=== PATIENT | female | born 1970 | race African-American/Black ===

== ENCOUNTER 2025-03-15 15:44 | Outpatient (NON) | payer MEDICARE, SELFPAY ==
--- OUTSIDE RECORDS SUMMARY | 2025-03-15 15:47 | XMS_ITS | Clinical Summary ---
Author Organization [facility] [employer] Address [address] [place] [address] Care Team Providers Care Senior Games Technician Name Role Phone JarochoLinda castellon Primary Care Provider [phone] Source Comments [facility],non-owned Affiliates and Associated Physician Practices is amultiple site organization consisting of ambulatory clinics and hospital sitesin [place], [place], [place] and [place]. This disclosure is being madepursuant to the Care Everywhere program and may not contain all information available regarding this patient. Last updated 18.[facility] [employer] Allergies Active Allergy Reactions Criticality Noted Date Comments Prochlorperazine Seizures High 02/28/2018 Tramadol Other Medium 02/28/2018 AMS Medications * Be aware that medications may not be up to date on this document. Alwaysverify current medications with the patient. clonazePAM (KLONOPIN) 2 MG tablet Take 1 (one) tablet by mouth 2 times daily Active Cholecalcifero l 1.25 MG (25838 UT) Take 50,000 Units by mouth once daily 06/04/20 21 Active doxepin (SINEquan) 150 MG capsule Take 1 (one) capsule by mouth nightly as needed 05/13/20 22 Active Belsomra 20 MG tablet Take 1 (one) tablet by mouth at bedtime 05/29/20 24 Active rosuvastatin (Crestor) 5 MG tablet Take 1 (one) tablet by mouth once daily Active OneTouch Verio test strip PLACE 1 STRIP BY IN GLLUCOMETER ROUTE EVERY DAY 08/23/20 22 Active Microlet Lancets MISC USE TO CHECK BLOOD SUGAR ONCE A DAY 08/29/20 22 Active potassium chloride ER (Klor-Con M) 10 MEQ tablet Take 1 (one) tablet by mouth once daily Active gabapentin (Neurontin) 300 MG capsule Take 1 (one) capsule by mouth 3 times daily 07/12/20 24 Active acetaminophen (Tylenol) 160 MG/5ML solution Take 31.25 mL by mouth every 8 hours 08/22/20 24 Active furosemide (Lasix) 20 MG tablet Take 1 (one) tablet by mouth once daily Active cyclobenzaprin e (Flexeril) 10 MG tablet Take 1 (one) tablet by mouth every 8 hours as needed 15 tablet 09/06/20 24 Active senna-docusate (Senokot-S) 8.6-50 MG tablet Take 1 (one) tablet by mouth 2 times daily as needed for Constipation 10/04/20 24 Active magnesium hydroxide (Milk Of Magnesia) 400 MG/5ML suspension Take 15 mL by mouth as needed for Constipation 10/04/20 24 Active methocarbamol (Robaxin) 500 MG tablet Take 1 (one) tablet by mouth every 6 hours as needed for Muscle Spasms 60 tablet 4 11:32 AM PENS AND PENCILS DIPPER 10/06/20 24 Active naloxone HCl (Narcan) 4 MG/0.1ML nasal spray Call 911. Administer a single spray of Narcan in one nostril. Repeat every 3 minutes as needed if no or minimal response. 2 Each 10/06/20 24 Active Empagliflozin (JARDIANCE PO) Activ e oxyCODONE, immediate release, (Roxicodone) 5 MG tabletIndicati ons:Morbid obesity (HCC) Take 1 (one) tablet by mouth every 6 hours as needed for Pain 12 tablet 02/03/20 25 Active lamoTRIgine (LaMICtal) 100 MG tablet Take 1 (one) tablet by mouth once daily Active ondansetron, disintegrating , (Zofran ODT) 4 MG tablet Take 1 (one) tablet by mouth every 6 hours as needed for Nausea/Vomiting Allow tablet to dissolve on the tongue 20 tablet 02/09/20 25 Active famotidine (Pepcid) 10 MG/ML SOLN injection 2 mL by Intravenous route 2 times daily 60 mL 4 02/09/20 25 Active miSOPROStol (Cytotec) 200 MCG tabletIndicati ons:Gastric Ulcer Take 1 (one) tablet by mouth 2 times daily Reasons: Stomach Ulcer 60 tablet 2 02/09/20 25 Active senna-docusate (Senokot-S) 8.6-50 MG tablet Take 1 (one) tablet by mouth 2 times daily as needed for Constipation 02/09/20 25 Active magnesium hydroxide (Milk Of Magnesia) 400 MG/5ML suspension Take 15 mL by mouth as needed for Constipation 02/09/20 25 Active famotidine (Pepcid) 20 MG tabletIndicati ons:Gastric ulcer, unspecified chronicity, unspecified whether gastric ulcer hemorrhage or perforation present Take 1 (one) tablet by mouth 2 times daily 60 tablet 3 02/10/20 25 Active pantoprazole EC (Protonix) 40 MG tablet Take 1 (one) tablet by mouth 2 times daily 60 tablet 2 02/10/20 25 Active sucralfate (Carafate) 1 GM/10ML suspension TAKE 10 ML BY MOUTH 4 TIMES DAILY - BEFORE MEALS & NIGHTLY 3600 mL 03/14/20 25 Active sucralfate (Carafate) 1 GM/10ML suspension Take 10 mL by mouth 4 times daily - before meals & nightly 1200 mL 2 02/09/20 25 025 Discontinued Active Problems Problem Noted Date Diagnosed Date Gastric ulcer, unspecified c hronicity, unspecified whether gastric ulcer hemorrhage or perforation present 02/07/2025 Rectal bleeding 10/02/2024 Nausea and vomiting, unspecified vomiting type 1 11/14/2023 Abdominal pain, unspecified abdominal location 1 11/14/2023 Morbid obesity 08/21/2024 Chest pain 12/05/2019 Shortness of breath 04/23/2019 Acute pulmonary edema 04/23/2019 Bipolar and related disorder 04/06/2019 Overview (04/24/2019): Last Assessment & Plan: Chronic, stable. Depressive symptoms are well controlled on current medication regimen. Confounded by trauma. Denies any symptom. Denies any symptoms of marylou or hypomania s Tolerating medications without any reported side effects. The patient denies active suicidal and homicidal ideation. The following changes were made at today's appointment: Clonazepam taper and process-otherwise no change respect to medications prescribed for historical diagnosis bipolar disorder. . Reevaluate treatment/symptoms at interval per scheduled appointment. Of psychosis. Chronic post-traumatic stress disorder (PTSD) Overview (04/24/2019): Last Assessment & Plan: Chronic issue, has never had trauma focused therapy. Willing to participate in trauma focused therapy. Referred to [facility]. Consideration for use of SSRI in the future. Supportive, insight-oriented counseling provided in the office today. Continue to monitor. Closed fracture of left tibial plateau 9 Complex tear of medial menis cus of left knee as current injury 03/17/2019 Osteoarthritis of right knee 09/01/2018 Resolved Problems Problem Noted Date Diagnosed Date Resolved Date Community acquired pneumonia of right lower lobe of lung 04/23/2019 04/24/2019 Encounters Date Type Department Care Team Description 03/13/2025 Refill [facility] 2S SURG/BARIATRIC [address] [place] [id number] Shelia Little DIRECTOR OF REGULATORY AFFAIRS-PATHOLOGY LABORATORY TECHNOLOGIST Med Change Request 02/28/2025 Telephone [facility] [address] [place] [address], [address] [place] [address] Shelia Little DIRECTOR OF REGULATORY AFFAIRS-PATHOLOGY LABORATORY TECHNOLOGIST MELENA; Pain Epigastric 02/27/2025 Telephone [facility] [address] [place] [address], [facility] [address] [place] [address] Zully Zamora, RN Returned Call 02/07/2025 7:20 AM CDT - 02/07/2025 7:40 AM CDT Surgery [facility] [address] [place] [id number] Narendra Peña MD ESOPHAGOGASTRODUODENOSCOPY (EGD) DIAGNOSTIC 02/07/2025 7:18 AM CDT Anesthesia Event [facility] [address] [place] [address] Hector Reyes MD 02/07/2025 6:01 AM CDT - 02/11/2025 3:03 PM CDT Hospital Encounter [facility] SURG[facility]BARIATRIC [address] [place] [address] Narendra Peña MD Arukala, Venkat Dirish, MD Internal Medicine Discharge Disposition: Home or Self Care 02/07/2025 Travel 02/06/2025 Travel 02/02/2025 1:40 PM CDT Office Visit [facility] Health Weight Management Services [address], [address] [place] [address] Narendra Peña MD Gastric ulcer, unspecified chronicity, unspecified whether gastric ulcer hemorrhage or perforation present (Primary Dx); Morbid obesity; Other specified intestinal malabsorption; Epigastric pain 02/02/2025 Telephone [facility] [address], [address] [place] [address] Narendra Peña MD Procedure from Last 3 Months Family History * Patient is adopted Relation Name Status Comments Father Alive Mother Alive Sister Alive Social History Tobacco Use Types Packs/Day Years Used Date Smoking Tobacco: Former Cigarettes 2016 Smokeless Tobacco: Never Tobacco Cessation:Counseling Given: Yes Alcohol Use Standard Drinks/Week Comments No 0 (1 standard drink = 0.6 oz pur e alcohol) AUDIT-C Answer Date Recorded Q1: How often do you have a drink containing alcohol? Never 02/08/2025 Q2: How many drinks containi ng alcohol do you have on a typical day when you are drinking? Patient does not drink Q3: How often do you have si x or more drinks on one occasion? Never 02/08/2025 Overall Financial Resource Strain (CARDIA) Answe r Date Recorded How hard is it for you to pa y for the very basics like food, housing, medical care, and heating? Somewhat hard 02/08/2025 PHQ-2 Answer Date Recorded PHQ2 TOTAL SCORE 2 07/20/2022 [facility] - Occupational Stress Questionnaire Answer Date Recorded Do you feel stress - tense, restless, nervous, or anxious, or unable to sleep at night because your mind is troubled all the time - these days? To some extent 02/08/2025 Hunger Vital Sign Answer Date Recorded Within the past 12 months, y ou worried that your food would run out before you got the money to buy more. Sometimes true Within the past 12 months, t he food you bought just didn't last and you didn't have money to get more. Never true 01/2025 PRAPARE - Transportation Answer Date Re corded In the past 12 months, has l ack of transportation kept you from medical appointments or from getting medications? Yes 01/2025 In the past 12 months, has l ack of transportation kept you from meetings, work, or from getting things needed for daily living? No 02/08/2025 Housing Stability Vital Sign Answer Pineda e Recorded In the last 12 months, was t here a time when you were not able to pay the mortgage or rent on time? No 02/08/2025 In the past 12 months, how m any times have you moved where you were living? 1 02/08/2025 At any time in the past 12 m [facility], were you homeless or living in a chcf (including now)? No 02/08/2025 Comments No Sex and Gender Information Value Date Recorded Sex Assigned at Not on file Legal Sex Female 5:55 AM PENS AND PENCILS DIPPER Gender Identity Not on file Sexual Orientation Not on file Last Filed Vital Signs Vital Sign Reading Time Taken Comments Blood Pressure 95/66 02/11/2025 3:42 AM CDT Pulse 95 02/11/2025 3:42 AM CDT Temperature 36.8 C (98.2 F) 02/11/2025 3:42 AM CDT Respiratory Rate 17 02/11/2025 3:42 AM CDT Oxygen Saturation 97% 02/11/2025 3:42 AM CDT Inhaled Oxygen Concentration - - Weight 95.3 kg (210 lb) 02/07/2025 6:30 AM CDT Height 170.2 cm (5' 7 ) 02/07/2025 6:30 AM CDT Body Mass Index 32.89 02/07/2025 6:30 AM CDT Plan of Treatment Upcoming Encounters Date Type Department Care Team (Late st Contact Info) Description 08/21/2025 1:00 PM CDT Office Visit [facility] Health Weight Management Services [phone] [facility], [facility] [address] [place] [address] Shelia Little, DIRECTOR OF REGULATORY AFFAIRS-PATHOLOGY LABORATORY TECHNOLOGIST [address] [place] [address] Health Maintenance Due Date Last Done Comments COLOGUARD (AGES 45-75) - COLON CA SCREENING 1968 CT COLONOGRAPHY - COLON CA SCREENING 1968 FIT - COLON CA SCREENING 1968 FLEX SIG - COLON CA SCREENING 1968 PAP SMEAR 1968 HEPATITIS C SCREENING 12/12/1986 DTAP/TDAP/TD VACCINES (1 - Tdap) 1987 HEPATITIS B VACCINE (1 of 3 - 19+ 3-dose series) 1987 PNEUMOCOCCAL VACCINE 50+ (1 of 2 - PCV) 1987 ZOSTER VACCINE (1 of 2) 2018 COVID-19 VACCINE (5 - season) 2024 03/11/2022, 09/19/2021, 02/14/2021, Additional history exists DEPRESSION SCREENING 11/08/2024 09/02/2022, 08/03/2022, 08/03/2022, Additional history exists MEDICARE AWV CALENDAR YEAR 2024 INFLUENZA VACCINE (Season Ended) 2025 MAMMOGRAM 08/15/2026 08/15/2024, 06/08, 06/25/2023, Additional history exists SCREENING FOR DIABETES 02/10/2028 , 02/09/2025, 02/08/2025, Additional history exists COLON MONITORING 10/03/2034 10/03/2024, 10/03/2024 COLONOSCOPY - COLON CA SCREENING 10/03/2034 10/03/2024, 10/03/2024 Colorectal Cancer Screening 10/03/2034 HIV SCREENING Completed 12/05/2019 HIB VACCINE Aged Out No longer eligi ble based on patient's age to complete this topic HPV VACCINE Aged Out No longer eligi ble based on patient's age to complete this topic MENINGOCOCCAL (Group B) VACCINE SHARED DECISION-MAKING Aged Out No longer eligible based on patient's age to complete this topic MENINGOCOCCAL GROUPS A/C/Y/W VACCINE Aged Out No longer eligible based on patient's age to complete this topic Procedures Procedure Name Priority Date/Time Associated Diagnosis Comments SLIDE SCAN HEMATOLOGY AM Draw 02/10/2025 3:42 AM CDT PROCALCITONIN LEVEL AM Draw 02/10/2025 3 :42 AM CDT CBC W AUTO DIFFERENTIAL AM Draw 02/10/2025 3:42 AM CDT SARS-COV-2 (COVID-19) FLU A/B RSV PCR RAPID Routine 02/09/2025 11:31 AM CDT CULTURE BLOOD Timed 02/09/2025 11:25 AM CDT CULTURE BLOOD Timed 02/09/2025 11:19 AM CDT XR CHEST 1VW PORTABLE STAT 02/09/2025 8:25 AM CDT Abdominal pain, unspecified abdominal location COPPER BLOOD AM Draw 02/09/2025 3:53 AM CDT Other specified intestinal malabsorption (HCC) Abdominal pain, unspecified abdominal location Bariatric surgery status ZINC BLOOD AM Draw 02/09/2025 3:53 AM CDT Other specified intestinal malabsorption (HCC) Abdominal pain, unspecified abdominal location Bariatric surgery status BASIC METABOLIC PANEL (CALCIUM TOTAL) AM Draw 02/09/2025 3:53 AM CDT Other specified intestinal malabsorption (HCC) Abdominal pain, unspecified abdominal location Bariatric surgery status CBC W/O DIFFERENTIAL AM Draw 02/09/2025 3:53 AM CDT Other specified intestinal malabsorption (HCC) Abdominal pain, unspecified abdominal location Bariatric surgery status PREALBUMIN Routine 02/09/2025 3:53 AM CDT Other specified intestinal malabsorption (HCC) Abdominal pain, unspecified abdominal location Bariatric surgery status PTH INTACT W/O CALCIUM AM Draw 02/09/2025 3:53 AM CDT Other specified intestinal malabsorption (HCC) Abdominal pain, unspecified abdominal location Bariatric surgery status MAGNESIUM BLOOD Routine 02/09/2025 3:53 AM CDT Other specified intestinal malabsorption (HCC) Abdominal pain, unspecified abdominal location Bariatric surgery status VITAMIN B1 AM Draw 02/09/2025 3:53 AM CDT Other specified intestinal malabsorption (HCC) Abdominal pain, unspecified abdominal location Bariatric surgery status VITAMIN K1 AM Draw 02/09/2025 3:53 AM CDT Other specified intestinal malabsorption (HCC) Abdominal pain, unspecified abdominal location Bariatric surgery status VITAMIN E AM Draw 02/09/2025 3:53 AM CDT Other specified intestinal malabsorption (HCC) Abdominal pain, unspecified abdominal location Bariatric surgery status VITAMIN A AM Draw 02/09/2025 3:53 AM CDT Other specified intestinal malabsorption (HCC) Abdominal pain, unspecified abdominal location Bariatric surgery status GLUCOSE - POINT OF CARE Routine 02/09/2025 2:16 AM CDT FOLATE STAT 02/08/2025 3:44 AM CDT Bariatric surgery status VITAMIN B12 STAT 02/08/2025 3:44 AM CDT Bariatric surgery status FERRITIN STAT 02/08/2025 3:44 AM CDT Gastric ulcer, unspecified chronicity, unspecified whether gastric ulcer hemorrhage or perforation present IRON + TRANSFERRIN PANEL STAT 02/08/2025 3:44 AM CDT Gastric ulcer, unspecified chronicity, unspecified whether gastric ulcer hemorrhage or perforation present SLIDE SCAN HEMATOLOGY AM Draw 02/08/2025 3:44 AM CDT Gastric ulcer, unspecified chronicity, unspecified whether gastric ulcer hemorrhage or perforation present BASIC METABOLIC PANEL (CALCIUM TOTAL) Routine 02/08/2025 3:44 AM CDT CBC W AUTO DIFFERENTIAL AM Draw 02/08/2025 3:44 AM CDT Gastric ulcer, unspecified chronicity, unspecified whether gastric ulcer hemorrhage or perforation present AK ED EGD FLEX TRANSORAL DX 02/07/2025 7:20 AM CDT EGD Routine 02/07/2025 6:55 AM CDT Morbid obesity (HCC) Other specified intestinal malabsorption (HCC) Gastric ulcer, unspecified chronicity, unspecified whether gastric ulcer hemorrhage or perforation present ENDOSCOPY, COLON, DIAGNOSTIC Routine 10/03/2024 10:39 AM PENS AND PENCILS DIPPER HIV-1 HIV-2 ANTIBODY + HIV P24 AG PANEL STAT 12/05/2019 8:51 AM PENS AND PENCILS DIPPER from Last 3 Months or Most Recently Relevant to Health Maintenance Results * (ABNORMAL) PROCALCITONIN LEVEL (02/10/2025 3:42 AM CDT) Procalcitonin 1.47(H) <0.10 ng/mL 02/10/2025 4:32 AM CDT [facility] Blood BLOOD SPECIMEN / Unknown Venipuncture / Unknown 02/10/2025 3:42 AM CDT 02/10/2025 3:54 AM CDT Narrative [facility] - 02/10/2025 4:32 AM CDT The change in procalcitonin (PCT) concentration over time provides support in decision making on antibiotic discontinuation for suspected or confirmed septic patients. Follow-up samples should be tested once every 1-2 days based upon physician discretion taking into account the patient s evolution and progress. Consider discontinuation of antibiotic therapy if the PCT current is <= 0.5 ng/mL or if the delta PCT is > 80%. Duration of antibiotics should not be determined solely on PCT; established guidelines for the indication should be followed. PCT peak: Highest observed PCT concentration PCT current: Most recent PCT concentration Calculate delta PCT using the following equation: Delta PCT = PCT Peak PCT current X 100% PCT Peak The Change in Procalcitonin Calculator is available at [email or web address] If clinical picture has not improved and PCT remains high, reevaluate and consider treatment failure or other causes. Janak Zuniga MD LAB - CHEMISTRY ORDERAB LES Final Result Performing Organization Address [facility] Co de Phone Number [facility] [address] [place], [place] [id number] * (ABNORMAL) SLIDE SCAN HEMATOLOGY (02/10/2025 3:42 AM CDT) Only the most recent of2 resultswithin the time period is included. Pathologist [facility] RBC Morphology REVIEWED 02/10/2025 4:33 AM CDT [facility] Schistocytes FEW(A) (none) 02/10/2025 4:33 AM CDT [facility] Blood BLOOD SPECIMEN / Unknown Venipuncture / Unknown 02/10/2025 3:42 AM CDT 02/10/2025 3:54 AM CDT Janak Zuniga MD LAB - HEMATOLOGY ORDERA BLES Final Result Performing Organization Address [facility] de Phone Number [facility] [address] [place] [address] * (ABNORMAL) CBC W AUTO DIFFERENTIAL (02/10/2025 3:42 AM CDT) Only the most recent of2 resultswithin the time period is included. Pathologist [facility] WBC 7.0 4.0 - 10.7 x10E9/L 02/10/2025 4:33 AM CDT [facility] RBC Count 5.25(H) 3.90 - 5.20 x10E12/L 02/10/2025 4:33 AM CDT [facility] Hemoglobin 10.2(L) 11.9 - 15.8 g/dL 02/10/2025 4:33 AM CDT [facility] Hematocrit 34.4(L) 34.8 - 46.1 % 02/10/2025 4:33 AM CDT [facility] MCV 65.5(L) 80.0 - 98.0 fL 02/10/2025 4:33 AM CDT [facility] MCH 19.4(L) 26.7 - 33.6 pg 02/10/2025 4:33 AM CDT [facility] MCHC 29.7(L) 31.7 - 36.3 g/dL 02/10/2025 4:33 AM CDT [facility] RDW-CV 22.9(H) 11.3 - 14.8 % 02/10/2025 4:33 AM CDT [facility] Platelet Count 468(H) 150 - 420 x10E9/L 02/10/2025 4:33 AM CDT [facility] MPV 8.5 7.8 - 11.4 fL 02/10/2025 4:33 AM CDT [facility] Neutrophil % 50.7 41.0 - 74.0 % 02/10/2025 4:33 AM CDT [facility] Lymphocyte % 34.3 17.0 - 47.0 % 02/10/2025 4:33 AM CDT [facility] Monocyte % 8.1 3.0 - 11.0 % 02/10/2025 4:33 AM CDT [facility] Eosinophil % 5.3 0.0 - 7.0 % 02/10/2025 4:33 AM T [facility] Basophil % 0.3 0.0 - 1.6 % 02/10/2025 4:33 AM T [facility] Immature Granulocytes % 1.3(H) 0.0 - 1.0 % 02/10/2025 4:33 AM CDT [facility] Neutrophil Absolute 3.56 1.60 - 7.50 x10E9/L 02/10/2025 4:33 AM T [facility] Lymphocyte Absolute 2.41 1.00 - 4.40 x10E9/L 02/10/2025 4:33 AM T [facility] Monocyte Absolute 0.57 0.15 - 1.00 x10E9/L 02/10/2025 4:33 AM CDT [facility] Eosinophil Absolute 0.37 0.00 - 0.60 x10E9/L 02/10/2025 4:33 AM T [facility] Basophil Absolute 0.02 0.00 - 0.13 x10E9/L 02/10/2025 4:33 AM CDT [facility] NRBC 0.9(H) <=0.0 /100 WBC 02/10/2025 4:33 AM T [facility] Blood BLOOD SPECIMEN / Unknown Venipuncture / Unknown 02/10/2025 3:42 AM CDT 02/10/2025 3:54 AM CDT Janak Zuniga MD LAB - HEMATOLOGY ORDERA BLES Final Result Performing Organization Address [facility] Co de Phone Number [facility] [address] [place] [phone] * SARS-COV-2 (COVID-19) FLU A/B RSV PCR RAPID (02/09/2025 11:31 AM CDT) [facility] COVID-19 PCR Not detected Not detected 02/10/20 12:24 PM CDT [facility] Influenza A PCR Not detected Not detected 02/09/2025 12:24 PM CDT [facility] Influenza B PCR Not detected Not detected 02/09/2025 12:24 PM CDT [facility] RSV PCR Not detected Not detected 02/09/2025 12:24 PM CDT [facility] Microbiology SPECIMEN FROM NASOPHARYNGEAL STRUCTURE / Unknown Collection / Unknown 02/09/2025 11:31 AM CDT 02/09/2025 11:41 AM CDT Narrative [facility] - 02/09/2025 12:24 PM CDT This nucleic acid amplification assay has been authorized by the Food and Drug administration (FDA) under an Emergency Use Authorization (EUA). This test is only authorized for the duration of time the declaration that circumstances exist justifying the authorization of emergency use of in vitro diagnostic tests for detection of SARS-CoV-2 virus and/or diagnosis of COVID-19 infection under section 564(b)(1) of the Act, 21 U.S.C 360bbb-3 (b)(1), unless the authorization is terminated or revoked sooner. Fact Sheets for this EUA assay are available upon request. Janak Zuniga MD LAB - MICROBIOLOGY ORDEleazar BURRIS Final Result Performing Organization Address [facility] Co de Phone Number [facility] [address] [place] [phone] * CULTURE BLOOD (02/09/2025 11:25 AM CDT) Only the most recent of2 resultswithin the time period is included. Culture No growth day 5 NATI 02/14/2025 2:01 PM CDT [facility]CRO[facility] Blood PERIPHERAL BLOOD / Unknown Venipuncture / Unknown 02/09/2025 11:25 AM CDT 02/09/2025 11:41 AM CDT Janak Zuniga MD LAB - MICROBIOLOGY DEMETRIUS BURRIS Final Result [facility]CRO[facility] [address] [place] [address], [facility] [phone] * XR Chest 1Vw Portable (02/09/2025 8:25 AM CDT) Anatomical Region Laterality Modality Chest Computed Radiogr aphy 02/09/2025 8:43 AM CDT Impressions 02/09/2025 8:44 AM CDT Impression: Left basilar atelectasis, rotated examination, otherwise no active disease. > Interpreting Provider: Hemanth Fenton MD on 02/09/2025 8:44 AM Narrative 02/09/2025 8:44 AM CDT PROCEDURE: XR CHEST 1VW PORTABLE, DATE/TIME OF EXAM: 02/09/2025 8:25 AM, LOCATION [facility] INDICATION: R10.9: Unspecified abdominal pain ADDITIONAL CLINICAL INFORMATION: Ordering Provider Reason For Exam: Technologist Note: Additional: Abdominal pain COMPARISON: December 05, 2019 Findings: Nonstandard portable exam. Heart size is normal. Left base subsegmental atelectasis. No paraspinal soft tissue swelling. No pneumothorax. No paraspinal soft tissue swelling. No aggressive appearing bone destructive process. No upper abdominal bowel loop distention. Procedure Note Hemanth Fenton MD - 02/09/2025 PROCEDURE: XR CHEST 1VW PORTABLE, DATE/TIME OF EXAM: 02/09/2025 8:25 AM, LOCATION [facility] INDICATION: R10.9: Unspecified abdominal pain ADDITIONAL CLINICAL INFORMATION: Ordering Provider Reason For Exam: Technologist Note: Additional: Abdominal pain COMPARISON: December 05, 2019 Findings: Nonstandard portable exam. Heart size is normal. Left base subsegmental atelectasis. No paraspinal soft tissue swelling. No pneumothorax. No paraspinal soft tissueswelling. No aggressive appearing bone destructive process. No upper abdominalbowel loop distention. Impression: Left basilar atelectasis, rotated examination, otherwise no active disease. > Interpreting Provider: Hemanth Fenton MD on 02/09/2025 8:44 AM Janak Zuniga MD DIAGNOSTIC IMAGING DEMETRIUS BURRIS Final Result * (ABNORMAL) PTH INTACT W/O CALCIUM (02/09/2025 3:53 AM CDT) Pathologist [facility] PTH Intact 118.9(H) 8.7 - 77.1 pg/mL 02/09/2025 4:47 AM CDT [facility] Blood BLOOD SPECIMEN / Unknown Venipuncture / Unknown 02/09/2025 3:53 AM CDT 02/09/2025 4:05 AM CDT Shelia Melisa Little DIRECTOR OF REGULATORY AFFAIRS-PATHOLOGY LABORATORY TECHNOLOGIST LAB - CHEMISTRY O RDERABLES Final Result [facility] [address] [id number] * (ABNORMAL) VITAMIN K1 (02/09/2025 3:53 AM CDT) Vitamin K1 <0.10(L) 0.10 - 2.20 ng/mL 02/18/2025 10:06 PM CDT [facility] Blood BLOOD SPECIMEN / Unknown Venipuncture / Unknown 02/09/2025 3:53 AM CDT 02/09/2025 4:05 AM CDT Narrative [facility] ([facility]) - 02/18/2025 10:06 PM CDT Test(s) 540915-Stwemoe K1 was developed and its performance characteristics determined by [facility]. It has not been cleared or approved by the Food and Drug Administration. Performed at: 01 - [address] [id number] Manager Ccu: Neetu Agrawal MD, Phone: [phone] Shelia Little [facility] LAB - CHEMISTRY O RDERABLES Final Result Performing Organization Address [facility] de Phone Number [facility] ([facility]) [address] [place] [address] * (ABNORMAL) ZINC BLOOD (02/09/2025 3:53 AM CDT) Zinc, Plasma or Serum 40(L) 44 - 115 ug/dL 02/15/2025 5:09 PM CDT [facility] ([facility]) Comment:Detection Limit = 5 Blood BLOOD SPECIMEN / Unknown Venipuncture / Unknown 02/09/2025 3:53 AM CDT 02/09/2025 4:05 AM CDT Narrative [facility] ([facility]) - 02/15/2025 5:09 PM CDT Test(s) 625415-Mfcf, Plasma or Serum was developed and its performance characteristics determined by [facility]. It has not been cleared or approved by the Food and Drug Administration. Performed at: - [address] [id number] Manager Ccu: Neetu Agrawal MD, Phone: [phone] us Shelia Little [facility] LAB - CHEMISTRY O RDERABLES Final Result Performing Organization Address [facility] de Phone Number [facility] ([facility]) [address] [place] [address] * (ABNORMAL) VITAMIN A (02/09/2025 3:53 AM CDT) Vitamin A 7.7(L) 20.1 - 62.0 ug/dL 02/19/2025 4:11 PM CDT [facility] ([facility]) Comment: Reference intervals for vitamin A determined from [facility] internal studies. Individuals with vitamin A less than 20 ug/dL are considered vitamin A deficient and those with serum concentrations less than 10 ug/dL are considered severely deficient. This test was developed and its performance characteristics determined by [facility]. It has not been cleared or approved by the Food and Drug Administration. Blood BLOOD SPECIMEN / Unknown Venipuncture / Unknown 02/09/2025 3:53 AM CDT 02/09/2025 4:05 AM CDT Narrative [facility] ([facility]) - 02/19/2025 4:11 PM CDT Performed at: - [facility] [id number] Manager Ccu: Neetu Agrawal MD, Phone: [phone] us Shelia Vincent Anabel DIRECTOR OF REGULATORY AFFAIRS-PATHOLOGY LABORATORY TECHNOLOGIST LAB - CHEMISTRY O RDERABLES Final Result [facility] ([facility]) [address] [place] [address] * (ABNORMAL) VITAMIN E (02/09/2025 3:53 AM CDT) Vitamin E Alpha Tocopherol 5.1(L) 7.0 - 25.1 mg/L 02/19/2025 4:11 PM CDT [facility] ([facility]) Vitamin E Gamma Tocopherol 1.7 0.5 - 5.5 mg/L 02/19/2025 4:11 PM CDT [facility] ([facility]) Comment: Reference intervals for alpha and gamma-tocopherol determined from National Health and Nutrition Examination Survey, 4258-7956. Individuals with alpha-tocopherol levels less than 5.0 mg/L are considered vitamin E deficient. Blood BLOOD SPECIMEN / Unknown Venipuncture / Unknown 02/09/2025 3:53 AM CDT 02/09/2025 4:05 AM CDT Narrative [facility] ([facility]) - 02/19/2025 4:11 PM CDT Test(s) 251860-Gtditvm E(Alpha Tocopherol); 349008- Vitamin E(Gamma Tocopherol) was developed and its performance characteristics determined by [facility] [employer]. It has not been cleared or approved by the Food and Drug Administration. Performed at: [address] [id number] Manager Ccu: Neetu Agrawal MD, Phone: [phone] Shelia Cosmeeleazar Little DIRECTOR OF REGULATORY AFFAIRS-[facility] LAB - CHEMISTRY O RDERABLES Final Result Performing Organization Address City/[facility]/ZIP Co de Phone Number [facility]) [address] [place] [address] * VITAMIN B1 (02/09/2025 3:53 AM CDT) Vitamin B1 Whole Blood 83.0 66.5 - 200.0 nmol/L 02/14/2025 2:10 PM CDT [facility] ([facility]) Blood BLOOD SPECIMEN / Unknown Venipuncture / Unknown 02/09/2025 3:53 AM CDT 02/09/2025 4:05 AM CDT Narrative [facility] ([facility]) - 02/14/2025 2:10 PM CDT Test(s) 238345-Wdp. B1, Whole Blood was developed and its performance characteristics determined by [facility]. It has not been cleared or approved by the Food and Drug Administration. Performed at: - [address] [id number] Manager Ccu: Neetu Agrawal MD, Phone: [phone] Shelia Melisa Little DIRECTOR OF REGULATORY AFFAIRS-[facility] LAB - CHEMISTRY O RDERABLES Final Result Performing Organization Address [facility] Co de Phone Number [facility]) [address] [place] [address] * (ABNORMAL) COPPER BLOOD (02/09/2025 3:53 AM CDT) Pathologist [facility] Copper 60(L) 80 - 158 ug/dL 02/15/2025 5:09 PM CDT [facility] ([facility]) Comment:Detection Limit = 5 Blood BLOOD SPECIMEN / Unknown Venipuncture / Unknown 02/09/2025 3:53 AM CDT 02/09/2025 4:05 AM CDT Narrative [facility] ([facility]) - 02/15/2025 5:09 PM CDT Test(s) 125637-Imvfjz, Serum or Plasma was developed and its performance characteristics determined by [facility]. It has not been cleared or approved by the Food and Drug Administration. Performed at: 01 - [place] [id number] [place], [place] [id number] Manager Ccu: Neetu Agrawal MD, Phone: [phone] Janak Zuniga MD LAB - CHEMISTRY ORDERAB LES Final Result [facility] ([facility]) [address] [place] [address] * (ABNORMAL) CBC W/O DIFFERENTIAL (02/09/2025 3:53 AM CDT) WBC 8.0 4.0 - 10.7 x10E9/L 02/09/2025 4:19 AM CDT [facility] RBC Count 4.76 3.90 - 5.20 x10E12/L 02/09/2025 4:19 AM CDT [facility] Hemoglobin 9.3(L) 11.9 - 15.8 g/dL 02/09/2025 4:19 AM CDT [facility] Hematocrit 31.0(L) 34.8 - 46.1 % 02/09/2025 4:19 AM CDT [facility] MCV 65.1(L) 80.0 - 98.0 fL 02/09/2025 4:19 AM CDT [facility] MCH 19.5(L) 26.7 - 33.6 pg 02/09/2025 4:19 AM CDT [facility] MCHC 30.0(L) 31.7 - 36.3 g/dL 02/09/2025 4:19 AM CDT [facility] RDW-CV 22.5(H) 11.3 - 14.8 % 02/09/2025 4:19 AM CDT [facility] Platelet Count 429(H) 150 - 420 x10E9/L 02/09/2025 4:19 AM CDT [facility] MPV 8.5 7.8 - 11.4 fL 02/09/2025 4:19 AM CDT [facility] NRBC 0.4(H) <=0.0 /100 WBC 02/09/2025 4:19 AM CDT [facility] Blood BLOOD SPECIMEN / Unknown Venipuncture / Unknown 02/09/2025 3:53 AM CDT 02/09/2025 4:05 AM CDT Shelia Little [facility] LAB - HEMATOLOGY ORDERABLES Final Result [facility] [address] [place] [address] * (ABNORMAL) BASIC METABOLIC PANEL (CALCIUM TOTAL) (02/09/2025 3:53 AM CDT) Only the most recent of2 resultswithin the time period is included. [facility] Glucose 82 70 - 99 mg/dL 02/09/2025 4:39 AM CDT [facility] Sodium 142 136 - 145 mmol/L 02/09/2025 4:39 AM CDT [facility] Potassium 3.7 3.5 - 5.1 mmol/L 02/09/2025 4:39 AM CDT [facility] Chloride 112(H) 98 - 107 mmol/L 02/09/2025 4:39 AM CDT [facility] CO2 23 22 - 29 mmol/L 02/09/2025 4:39 AM CDT [facility] Calcium 7.9(L) 8.4 - 10.4 mg/dL 02/09/2025 4:39 AM T [facility] Anion Gap 7 6 - 16 mmol/L 02/09/2025 4:39 AM CDT [facility] BUN 4(L) 7 - 26 mg/dL 02/09/2025 4:39 AM CDT [facility] Creatinine 0.68 0.57 - 1.11 mg/dL 02/09/2025 4:39 AM T [facility] eGFR by CKD-EPI >90 >=90 mL/min/1.7 3 m2 02/09/2025 4:39 AM T [facility] Blood BLOOD SPECIMEN / Unknown Venipuncture / Unknown 02/09/2025 3:53 AM CDT 02/09/2025 4:05 AM CDT [facility] - CHEMISTRY O RDERABLES Final Result Performing Organization Address [facility] Co de Phone Number [facility] [address] [place], [place] [phone] * (ABNORMAL) PREALBUMIN (02/09/2025 3:53 AM CDT) [facility] Prealbumin 9.0(L) 16.0 - 38.0 mg/dL 02/09/2025 10:37 AM CDT [facility] Blood BLOOD SPECIMEN / Unknown Venipuncture / Unknown 02/09/2025 3:53 AM CDT 02/09/2025 4:05 AM CDT Shelia Little [facility] LAB - CHEMISTRY O RDERABLES Final Result Performing Organization Address [facility] Co de Phone Number [facility] [address] [place] [address] * MAGNESIUM BLOOD (02/09/2025 3:53 AM CDT) [facility] Magnesium 1.6 1.6 - 2.6 mg/dL 02/09/2025 4:39 AM CDT [facility] Blood BLOOD SPECIMEN / Unknown Venipuncture / Unknown 02/09/2025 3:53 AM CDT 02/09/2025 4:05 AM CDT Shelia Little [facility] LAB - CHEMISTRY O RDERABLES Final Result Performing Organization Address [facility]/ZIP Co de Phone Number [facility] [address] [place] [address] * GLUCOSE - POINT OF CARE (02/09/2025 2:16 AM CDT) [facility] Glucose WB/POC 91 70 - 99 mg/dL 02/09/2025 2:18 AM CDT [facility] Specimen Type Cap Fingerstick 2024 2:18 AM CDT [facility] Blood BLOOD SPECIMEN / Unknown 02/09/2025 2:16 AM CDT 02/09/2025 2:18 AM CDT Janak Zuniga MD LAB - POINT OF CARE ORD ERABLES Final Result Performing Organization Address [facility] Co de Phone Number [facility] [address] [place] [address] * FOLATE (02/08/2025 3:44 AM CDT) Folate 9.4 7.0 - 31.4 ng/mL 02/08/2025 10:40 AM CDT [facility] Blood BLOOD SPECIMEN / Unknown Venipuncture / Unknown 02/08/2025 3:44 AM CDT 02/08/2025 3:53 AM CDT Janak Zuniga MD LAB - CHEMISTRY ORDERAB LES Final Result Performing Organization Address [facility] de Phone Number [facility] [address] [place] [address] * VITAMIN B12 (02/08/2025 3:44 AM CDT) Pathologist [facility] Vitamin B12 444 213 - 816 pg/mL 02/08/2025 10:40 AM CDT [facility] Blood BLOOD SPECIMEN / Unknown Venipuncture / Unknown 02/08/2025 3:44 AM CDT 02/08/2025 3:53 AM CDT Janak Zuniga MD LAB - CHEMISTRY ORDERAB LES Final Result Performing Organization Address [facility] de Phone Number [facility] [address] [place] [address] * (ABNORMAL) IRON + TRANSFERRIN PANEL (02/08/2025 3:44 AM CDT) Iron 21(L) 40 - 150 ug/dL 02/08/2025 8:25 AM CDT [facility] Transferrin 227 174 - 382 mg/dL 02/08/2025 8:25 AM CDT [facility] TIBC Calculated 284 240 - 450 ug/dL 02/08/2025 8:25 AM CDT [facility] Iron Saturation % 7(L) 20 - 50 % 02/08/2025 8:25 AM CDT [facility] Blood BLOOD SPECIMEN / Unknown Venipuncture / Unknown 02/08/2025 3:44 AM CDT 02/08/2025 3:53 AM CDT Janak Zuniga MD LAB - CHEMISTRY ORDERAB LES Final Result Performing Organization Address City/[facility] Co de Phone Number [facility] [address] [place] [address] * FERRITIN (02/08/2025 3:44 AM CDT) Ferritin 34 5 - 204 ng/mL 02/08/2025 8:38 AM CDT [facility] Blood BLOOD SPECIMEN / Unknown Venipuncture / Unknown 02/08/2025 3:44 AM CDT 02/08/2025 3:53 AM CDT Janak Zuniga MD LAB - CHEMISTRY ORDERAB LES Final Result Performing Organization Address [facility] de Phone Number [facility] [address] [place] [address] * EGD (02/07/2025 6:55 AM CDT) Report Endoscopy POC _ Patient Name: Liudmila Hickman Procedure Date: 02/07/2025 6:55 AM Date of : 1970 Admit Type: Outpatient Age: 54 Gender: Female Attending MD: Narendra Peña MD, _ Procedure: Upper GI endoscopy Indications: Epigastric abdominal pain Providers: Narendra Peña MD (Doctor) Referring MD: Linda Avendaño DO (Referring MD) Medicines: Monitored Anesthesia Care Complications: No immediate complications. _ Estimated Blood Loss: Estimated blood loss: none. Procedure: Pre-Anesthesia Assessment: - Prior to the procedure, a History and Physical was performed, and patient medications and allergies were reviewed. The patient's tolerance of previous anesthesia was also reviewed. The risks and benefits of the procedure and the sedation options and risks were discussed with the patient. All questions were answered, and informed consent was obtained. Prior Anticoagulants: The patient has taken no anticoagulant or antiplatelet agents. ASA Grade Assessment: III - A patient with severe systemic disease. After reviewing the risks and benefits, the patient was deemed in satisfactory condition to undergo the procedure. After obtaining informed consent, the endoscope was passed under direct vision. Throughout the procedure, the patient's blood pressure, pulse, and oxygen saturations were monitored continuously. The Endoscope was introduced through the mouth, and advanced to the proximal jejunum. The upper GI endoscopy was accomplished without difficulty. The patient tolerated the procedure well. Findings: The lower third of the esophagus was normal. Estimated blood loss: none. The Z-line was regular and was found 35 cm from the incisors. Estimated blood loss: none. Evidence of a gastric bypass was found. A gastric pouch with a 5 cm length from the GE junction to the gastrojejunal anastomosis was found. The staple line appeared intact. The gastrojejunal anastomosis was characterized by edema, erythema, inflammation and ulceration. This was traversed. The examined jejunum was normal. _ Impression: - Normal lower third of esophagus. - Z-line regular, 35 cm from the incisors. - Gastric bypass with a pouch 5 cm in length and intact staple line. Gastrojejunal anastomosis characterized by edema, erythema, inflammation and ulceration. - Normal examined jejunum. - No specimens collected. Recommendation: - Discharge patient to home. - Resume previous diet. - Continue present medications. Procedure Code(s): --- Professional --- 40595, Esophagogastroduo denoscopy, flexible, transoral; diagnostic, including collection of specimen(s) by brushing or washing, when performed (separate procedure) --- Technical --- 97774, Esophagogastroduo denoscopy, flexible, transoral; diagnostic, including collection of specimen(s) by brushing or washing, when performed (separate procedure) Diagnosis Code(s): --- Professional --- Z98.84, Bariatric surgery status K28.9, Gastrojejunal ulcer, unspecified as acute or chronic, without hemorrhage or perforation R10.13, Epigastric pain --- Technical --- Z98.84, Bariatric surgery status K28.9, Gastrojejunal ulcer, unspecified as acute or chronic, without hemorrhage or perforation R10.13, Epigastric pain CPT copyright 2020 [employer]. All rights reserved. The codes documented in this report are preliminary and upon vp of technology review may be revised to meet current compliance requirements. Narendra Peña ___ Narendra Peña MD 02/07/2025 7:32:44 AM This report has been signed electronically. Number of Addenda: 0 Note Initiated On: 02/07/2025 6:55 AM [facility] 02/07/2025 6:55 AM CDT Narrative Procedure Note Narendra Peña MD - 02/07/2025 7:33 AM CDT EGD completed. Gastric bypass with marginal ulcer. A full PDF copy of the report with photos is in the results and/or mediatab for your review. Please refer to this for full details of theprocedure. Carafate PPI gtt Pepcid Cytotec Admit for further management and pain control Narendra Peña MD us Narendra Peña MD GI PROCEDURE ORDERABLES Edit ed Result - Final [facility] [place] [address] * ENDOSCOPY, COLON, DIAGNOSTIC (10/03/2024 10:39 AM [employer]IP[employer]) Report Endoscopy POC _ Patient Name: Liudmila Hickman Procedure Date: 10/03/2024 10:39 AM Date of : 1970 Admit Type: Inpatient Age: 53 Gender: Female Attending MD: Miko Dale MD, _ Procedure: Colonoscopy Indications: Melena Providers: Miko Dale MD (Doctor) Referring MD: Luis Esquivel DO (Referring MD) Medicines: Monitored Anesthesia Care Complications: No immediate complications. _ Estimated Blood Loss: Estimated blood loss: none. Procedure: After I obtained informed consent, the scope was passed under direct vision. Throughout the procedure, the patient's blood pressure, pulse, and oxygen saturations were monitored continuously. The Colonoscope was introduced through the anus and advanced to the cecum, identified by appendiceal orifice and ileocecal valve. The colonoscopy was performed without difficulty. The patient tolerated the procedure well. The quality of the bowel preparation was poor. The ileocecal valve, appendiceal orifice, and rectum were photographed. Findings: A small amount of stool was found in the entire colon, interfering with visualization. The exam was otherwise without abnormality. _ Impression: - Preparation of the colon was poor. - Stool in the entire examined colon. no source of bleeding seen. Small polyps could have been missed - The examination was otherwise normal. - No specimens collected. Recommendation: - Repeat colonoscopy in 3 years because the bowel preparation was poor. bleeding most likely from upper GI source from gastrojejunal anastomosis Procedure Code(s): --- Professional --- 92932, Colonoscopy, flexible; diagnostic, including collection of specimen(s) by brushing or washing, when performed (separate procedure) --- Technical --- 36608, Colonoscopy, flexible; diagnostic, including collection of specimen(s) by brushing or washing, when performed (separate procedure) Diagnosis Code(s): --- Professional --- K92.1, Melena (includes Hematochezia) --- Technical --- K92.1, Melena (includes Hematochezia) CPT copyright 2020 [employer]. All rights reserved. The codes documented in this report are preliminary and upon vp of technology review may be revised to meet current compliance requirements. Dr. Miko Dale MD Miko Dlae MD 10/03/2024 12:47:52 PM This report has been signed electronically. Number of Addenda: 0 Note Initiated On: 10/03/2024 10:39 AM [facility] 10/03/2024 10:3 9 AM [employer]ILS [employer]IP[employer] us Miko Dale MD GI PROCEDURE ORDERABLES Edited R esult - Final Performing Organization Address City/[facility]/ZIP Co de Phone Number [facility] [place] [address] * HIV-1 HIV-2 ANTIBODY + HIV P24 AG PANEL (12/05/2019 8:51 AM [employer]) HIV1/2 Ab + P24 Ag Non Reactive Non Reactive 12/05/2019 9:33 AM [employer] Blood BLOOD SPECIMEN / Unknown Venipuncture / Unknown 12/05/2019 8:51 AM [employer] 12/05/2019 8:55 AM [facility]ILS [employer] Narrative [facility] - 12/05/2019 9:33 AM [employer] No Laboratory evidence of HIV infection. us Sahil Lomax MD LAB - CHEMISTRY ORDERABLES Final Result Performing Organization Address [facility] Co de Phone Number [facility] [address] [place] [address] from Last 3 Months or Most Recently Relevant to Health Maintenance Insurance [facility] MANAGED MEDICARE ADV [employer] Advance Directives * Full Code (Latest Code Status on File) Date Activated Date Inactivated Comments 02/07/2025 10:20 AM 02/11/2025 4:03 PM * Full Code Date Activated Date Inactivated Comments 02/07/2025 8:47 AM 02/07/2025 10:20 AM * Full Code Date Activated Date Inactivated Comments 10/02/2024 7:06 PM 10/06/2024 7:23 PM * Full Code Date Activated Date Inactivated Comments 09/14/2024 9:17 PM 09/18/2024 5:41 PM * Full Code Date Activated Date Inactivated Comments 08/21/2024 3:21 PM 08/23/2024 4:18 PM Care Teams Senior Games Technician Relationship Specialty Start Date End Date Linda Avendaño DO [address] [place] [address] [phone] PCP - General Internal Medicine 07/09/22
--- OUTSIDE RECORDS SUMMARY | 2025-03-15 15:47 | XMS_ITS | Referral Summary ---
Author Organization [facility] [address] [place] [id number] Care Team Providers Care Field Sales Trainer Name Role Phone Rosmery Christiansen PT Unavailable Unavail able Jordyn Mathews PT Unavailable U Maria Teresa Lopez PT Unavailable Unavailable Linda Avendaño DO Primary Care Provider [phone] Allergies Active Allergy Reactions Criticality Noted Date Comments Prochlorperazine Seizures High 02/28/2018 Tramadol Hallucinations Medium 02/28/2018 Medications clonazePAM (KlonoPIN) 2 mg tablet Take 1 tablet (2 mg total) by mouth nightly 1 Active potassium chloride ER (KLOR-CON) 10 mEq CR tablet Take 1 capsule by mouth daily 1 Active doxepin (SINEquan) 150 mg capsule Take 1 capsule (150 mg total) by mouth nightly 30 capsule 11 1 Active lurasidone (LATUDA) 120 mg tablet Take 1 tablet (120 mg total) by mouth daily before dinner Active Microlet Lancet misc USE TO CHECK BLOOD SUGAR ONCE A DAY 2 Active gabapentin (NEURONTIN) 300 mg capsule Take 1 capsule (300 mg total) by mouth 3 (three) times a day 4 Active rosuvastatin (CRESTOR) 5 mg tablet Take 1 tablet (5 mg total) by mouth daily Active albuterol HFA (PROVENTIL HFA,VENTOLIN HFA,PROAIR HFA) 90 mcg/actuation inhaler Inhale 2 puffs every 4 (four) hours as needed for wheezing or shortness of breath Active enoxaparin (LOVENOX) 40 mg/0.4 mL syringe Inject 0.4 mL (40 mg total) under the skin daily Active metoprolol tartrate (LOPRESSOR) 50 mg immediate release tablet Take 1 tablet (50 mg total) by mouth 2 (two) times a day 4 Active ondansetron ODT (ZOFRAN-ODT) 4 mg disintegrating tablet Take 1 tablet (4 mg total) by mouth every 8 (eight) hours as needed for nausea or vomiting 4 Active Belsomra 20 mg tablet Take 1 tablet (20 mg total) by mouth nightly 4 Active pantoprazole 40 mg in sodium chloride 0.9% 10 mL IVPBIndications:GI Bleed Infuse 10 mL (40 mg total) into a venous catheter 2 (two) times a day 4 Active Active Problems Problem Noted Date Diagnosed Date Enteritis 09/14/2024 Polyarthralgia 01/25/2024 Overview (02/25/2024): 01/2024 labs: AVISE NUNO 1:160 (nuclear, speckled), RF IgA equiv, anti-B2 glycoprotein IgM 13, high C3/C4 02/2024 labs: -Bilat feet: calcaneal spurring noted along plantar surface bilaterally. Distal Achilles enthesopathic calcification. -Rt hand: unremarkable -Lt hand: mild 1st IP and STT joint arthritic changes with joint space narrowing and spurring. Small foci of erosive change at 2nd and 3rd PIP joint. May be indication of OA or PsA. US right hand/wrist (02/24/24): No significant joint effusions, power doppler activity, or tendinopathy appreciated on US examination. Cortical defect without any surrounding inflammatory changes seen in the 2nd metacarpal head. Marked synovial thickening in the 3rd PIP joint. Moderate synovial thickening in the 2nd and 4th MCP and 2nd PIP joints. An enlarged median nerve at 0.14 cm2 is identified. Assessment & Plan (02/28/2024 4:03 PM CDT): Ms. Agudelo is a 53yo female with PMH of anxiety, B12 deficiency, bipolar 1 disorder, CHF, GERD, OCD, PTSD, history of 3 simultaneous PEs s/p knee surgery, HLD, T2DM w/neuropathy, vitamin-D deficiency and CAMILLA who presented at last visit with recent +NUNO, elevated ESR/CRP levels and diffuse pain. Pain affecting shoulders with difficulty abducting arms and stiffness in the AM. A right GH joint steroid injection by PCP did provide some relief. Hands will stay puffy several days out of the week. Right hip/thigh pain is making it difficult to get out of a chair and describes low back pain with radicular symptoms. Reports 30-60 min of AM joint stiffness. She takes Tylenol Arthritis 1300mg once daily and sees PM for lumbar spine ESIs with temporary relief. Additional symptoms include dry mouth, Raynaud's phenomenon and dyspnea. No contributory FH. Recent serologies were again positive for an NUNO 1:160 and weak positive for anti-beta2 glycoprotein 13. ESR/CRP were again elevated at 38 and 25.3 respectively. Radiographic imaging of the left hand demonstrated mild arthritic changes of the wrist with small foci of erosive changes at 2nd and 3rd PIP joints, right hand x-ray was unremarkable and the bilateral feet showed Achilles enthesopathy is calcaneal spurring along the plantar surface. Right hand/wrist ultrasound revealed marked synovial thickening 3rd PIP joint, moderate thickening of the 2nd and 4th MCP and 2nd PIP joints and enlargement of the median nerve. Based on negative serologies, elevated inflammatory markers with shoulder/hip predominant symptoms there is concern for polymyalgia rheumatica. Will have her take 15mg prednisone daily x 7 days with update in symptoms after that time - complete resolution of symptoms with return upon cessation of steroids would signify a diagnosis. As she is pursuing bariatric surgery and wishes to avoid prolonged courses of steroids would seek approval for Kevzara injections q.2 weeks for PMR treatment with low-dose prednisone used initially to address symptoms. She was amenable with the plan. To return in 6 weeks, sooner if needed. Seen with Dr. Donato. Assessment & Plan (01/26/2024 2:57 PM CDT): Ms. Agudelo is a 53yo female with PMH of anxiety, B12 deficiency, bipolar 1 disorder, CHF, GERD, OCD, PTSD, history of 3 simultaneous PEs s/p knee surgery, HLD, T2DM w/neuropathy, vitamin-D deficiency and CAMILLA who presents with recent +NUNO, elevated ESR/CRP levels and diffuse pain. Pain affecting shoulders with difficultly on abducting arms and stiffness in the AM. A right GH joint steroid injection by PCP did provide some relief. Hands will stay puffy several days out of the week. Right hip/thigh pain is making it difficult to get out of a chair and describes low back pain with radicular symptoms. Reports 30-60 min of AM joint stiffness. She takes Tylenol Arthritis 1300mg once daily and sees PM for lumbar spine ESIs with temporary relief. Additional symptoms include dry mouth, Raynaud's phenomenon and dyspnea. No contributory FH. There is questionable synovitis of several PIP and MTP joints on exam with diffuse amount of joint pain. Able to actively abduct shoulders to 90d only. Ttp Differential diagnosis includes PMR vs fibromyalgia, less likely connective tissue disease although she does report dry mouth and Raynauds phenomenon (Neg SSA/SSB antibodies on recent testing). Will repeat AI serologies as well as inflammatory markers and muscle enzymes, radiographic imaging of her hands and feet and a right hand/wrist US to evaluate for any inflammation. To return in [address] Donato. Preoperative clearance 09/24/2022 Former smoker 09/24/2022 Chest pain 11/22/2021 Cocaine dependence, in remission 09/22/2021 Assessment & Plan (09/22/2021 1:48 PM VEGETABLE FARM WORKER): Continued cessation highly advised. No use in 9 months. Support provided. Class 3 severe obesity due t o excess calories without serious comorbidity with body mass index (BMI) of 50.0 to 59.9 in adult 07/31/2021 Assessment & Plan (07/31/2021 2:06 PM CDT): Referral provided bariatric surgery. B12 deficiency 06/04/2021 Assessment & Plan (07/31/2021 2:08 PM CDT): Ok to stop injections and use oral B complex only. Assessment & Plan (06/04/2021 9:16 AM CDT): Chronic condition, currently stable. Will continue current treatment. Recent lab work included B12 = 679 Continue supplementation with monthly injection/oral supplementation. Marijuana use 02/19/2021 Assessment & Plan (06/04/2021 9:17 AM CDT): Chronic condition, in remission. Does not report any use of marijuana or any other illicit drugs. Assessment & Plan (02/19/2021 11:34 AM CDT): Denies any use Crack cocaine use 11/15/2020 Assessment & Plan (07/31/2021 2:08 PM CDT): In full sustained remission for 7 months Assessment & Plan (06/04/2021 9:17 AM CDT): Chronic condition, in remission. No use for the past 5 months. Doing well with respect to substance use issues. Support provided. Assessment & Plan (02/19/2021 11:23 AM CDT): Denies any use Last use - relapse 1.5 months ago Assessment & Plan (11/15/2020 7:14 PM VEGETABLE FARM WORKER): Referred for substance use treatment. Vitamin D deficiency 12/26/2019 Assessment & Plan (06/04/2021 9:18 AM CDT): Chronic condition, not currently on supplementation. Advised the patient to go outside into the sunlight and to eat foods that are high in vitamin-D. 25 hydroxyvitamin D level recently = 9. Target = greater than 30-preferably 50. Supplementation ordered. Sent to pharmacy. Evaluate at interval. Assessment & Plan (07/10/2020 1:53 PM CDT): Continue supplementation Assessment & Plan (02/14/2020 2:52 PM CDT): The vitamin-D level was 12. Advised the patient to take vitamin D. I had sent this to the pharmacy after her recent lab work in December-but for some reason she did not get a prescription for it-perhaps it was not covered or she must have to buy [id number]. I did suggest to her that she take vitamin D and gave her instructions on how to get [id number]. Recommended that she take 10,000 international units per day. Review measure this level again in 3 months. Advised her also to go out into the son and get sunlight. Assessment & Plan (12/26/2019 3:36 PM VEGETABLE FARM WORKER): Lab work ordered. Not currently supplementing with vitamin-D Patellar tendinitis of right knee 07/04/2019 Chronic pain syndrome 07/04/2019 Primary insomnia 05/30/2019 Assessment & Plan (09/22/2021 1:49 PM VEGETABLE FARM WORKER): ExerciseChronic condition, currently stable. Advised the patient to focus on sleep hygiene. The patient does not report any worsening sleep-related difficulties at this time. Supportive, insight-oriented counseling provided. The importance of consistent sleep stressed. Assessment & Plan (06/04/2021 9:18 AM CDT): Chronic condition, currently stable. More recently sleeping okay. Continue doxepin. Continued focus on sleep hygiene. Continue to monitor. Assessment & Plan (02/19/2021 11:35 AM CDT): Chronic, persistent. Discontinue Trazodone Continue Doxepin - increase dose Assessment & Plan (11/15/2020 7:14 PM VEGETABLE FARM WORKER): Chronic, persistent, complicated by substance use and lack of adequate sleep hygiene. Assessment & Plan (07/10/2020 1:54 PM CDT): Chronic, persistent, continue medications as discussed. Focus on appropriate sleep hygiene. Assessment & Plan (02/14/2020 2:59 PM CDT): Chronic, persistent, feels it is manageable. She is only getting about 4 hours of sleep per night. She tells me every single time I see her that this is better than it was in the past. She needs a refill on temazepam-and I have sent to the pharmacy today. Assessment & Plan (12/26/2019 3:42 PM VEGETABLE FARM WORKER): Chronic issue, persistent, only sleeping 4 to 5 hours per night. Overall, she feels better and feels like he increased amount of sleep that she is now getting with 4 to 5 hours of sleep per night has been beneficial. She tells me she has had a home sleep study which did not reveal any problems. This was reportedly ordered by her previous psychiatrist. I told her that I would like to see the results so that I can look at them and determine if there is anything we can do to help further optimize her sleep. Focus on sleep hygiene. She will sign a consent to trying obtain the sleep study results from the a past study. Continue to monitor. Increase trazodone from 300 mg to 450 mg at bedtime. Monitor at interval. Assessment & Plan (11/18/2019 1:42 PM VEGETABLE FARM WORKER): Chronic and persistent. Trazodone 100 mg at bedtime. Focus on sleep hygiene. Follow-up in office. Acute pulmonary edema 04/23/2019 Encounter for psychiatric assessment 04/06/2019 Assessment & Plan (04/06/2019 3:42 PM CDT): Psychiatric assessment was completed in the office today. All the paperwork completed by the patient was reviewed by me with the patient. All of the questions posed to me by the patient were answered. A treatment plan was developed in line with the information presented to me. Refer to specific problems for additional information regarding assessment and treatment recommendations. Chronic post-traumatic stress disorder (PTSD) Assessment & Plan (09/23/2021 1:23 PM VEGETABLE FARM WORKER): Chronic, stable. No change to treatment at this point in time Assessment & Plan (07/31/2021 2:07 PM CDT): Continue with therapy. Assessment & Plan (12/26/2019 3:39 PM VEGETABLE FARM WORKER): Chronic condition, currently not significant. Continue to monitor. Assessment & Plan (11/18/2019 1:42 PM VEGETABLE FARM WORKER): Chronic, persistent, referred for therapy. Support provided. Education provided. Continue to monitor. Assessment & Plan (04/06/2019 3:18 PM CDT): Chronic issue, has never had trauma focused therapy. Willing to participate in trauma focused therapy. [facility]. Consideration for use of SSRI in the future. Supportive, insight-oriented counseling provided in the office today. Continue to monitor. Drug-induced insomnia (CMS/HCC) 04/06/2019 Assessment & Plan (04/06/2019 3:41 PM CDT): Chronic issue, persistent symptoms, related to benzodiazepine use. To use trazodone in lieu of benzodiazepine and taper off of benzodiazepine as trazodone being used. Anticipate refractory insomnia. Anticipate slow steady process. Trazodone 50 to 100 mg-may taper up to 200 mg total nightly dose over the course of the next few days as discussed. No prescription for clonazepam given to the patient, but she is currently still has a prescription from her previous treating physician and will use that -1 mg at bedtime. Plan to taper down to clonazepam 0.5 mg at bedtime next month. Full informed consent provided by the patient to continue these medications and starting trazodone. The patient verbalized an understanding of the reason for initiating trazodone and continuing these medications including the diagnosis and target symptoms for the medication recommended, the possible benefits and/or intended outcome of treatment, and as applicable, all available procedures involved in the proposed treatment, the possible risks and side effects, (including risk of medications to women and women who are ), the possible alternatives and complementary treatments, the possible results of not taking the recommended medications, (including but not limited to worsening symptoms, psychiatric instability, and even ), the possibility that this medication dose and/or frequency may need to be adjusted over time in consultation with Dr. Lu. The patient verbalized an understanding of the need for ongoing medical and psychiatric monitoring on an interval basis. At this time, the patient verbalizes full consent to initiate trazodone continue these other medications and understands the benefits and risks and wishes to proceed with full, informed consent. Cognitive complaints 04/06/2019 Assessment & Plan (04/06/2019 3:43 PM CDT): Suspect related to benzodiazepine use. Trauma in childhood 04/06/2019 Bipolar and related disorder (CMS/HCC) 9 Assessment & Plan (09/22/2021 1:49 PM VEGETABLE FARM WORKER): Chronic, stable. Depressive symptoms are well controlled on current medication regimen. Does not report any symptoms of marylou or hypomania. Does not report any symptoms of psychosis. Tolerating medications without any reported side effects. The patient denies active suicidal and homicidal ideation. The following changes were made at today's appointment: None. Reevaluate treatment/symptoms at interval per scheduled appointment. Assessment & Plan (07/31/2021 2:06 PM CDT): Chronic, stable. No medication changes at this time. Continue to monitor at interval. Assessment & Plan (06/04/2021 9:19 AM CDT): Chronic, stable. Depressive symptoms are well controlled on current medication regimen. Tolerating medications without any reported side effects. The patient denies active suicidal and homicidal ideation. The following changes were made at today's appointment: Restart Topamax 100 mg twice daily-for some reason the pharmacy kept telling the patient that t he doctor would not refill it. I reviewed the prescription today which indicated that there were refills until 06/10/2021-but she has not been on this medication now for the past 1.5 weeks. I am not sure why this is the case. Reevaluate treatment/symptoms at interval per scheduled appointment. Assessment & Plan (02/19/2021 12:39 PM CDT): Chronic, persistent. Assessment & Plan (11/15/2020 7:14 PM VEGETABLE FARM WORKER): Chronic, persistent, confounded by substance use. Denies any suicidal ideation. Continue Abilify Maintena. Continue to monitor. Assessment & Plan (07/10/2020 1:53 PM CDT): Acute symptoms of depression superimposed upon chronic condition. Confounded significantly by severe sleep dysfunction which has been refractory to treatment. The patient does not report any current suicidal or homicidal ideation. The patient does not report any auditory or visual hallucinations. The patient does not report any paranoid ideation. The patient does not report any symptoms of hypomania or marylou. Continue Latuda with a total daily dose of 120 mg. Start Topamax 50 mg daily and increase to 50 mg twice daily after 1 week assuming that the patient tolerates this medication. If she tolerates the 50 b.i.d. dose, after 2 weeks, she should increase to 50 mg in the morning and 100 mg in the evening. During the fourth week, she should increased to 100 mg twice daily and see me back at that time. If she develops any worsening symptoms or suicidal ideation, she will reach out and/or seek out a higher level of care. She is currently future oriented in living with her parents. Not having access to transportation is certainly causing her to be more depressed. Additionally, she is still struggling with the sequelae of her break-up. Will monitor again at interval as discussed. Assessment & Plan (12/26/2019 3:41 PM VEGETABLE FARM WORKER): Chronic, stable. Depressive symptoms are well controlled on current medication regimen. Tolerating medications without any reported side effects. The patient denies active suicidal and homicidal ideation. The following changes were made at today's appointment: [place] discontinued. Trazodone increased for sleep difficulties. Reevaluate treatment/symptoms at interval per scheduled appointment. Assessment & Plan (11/18/2019 1:43 PM VEGETABLE FARM WORKER): Chronic and persistent. The patient does not report any current suicidal or homicidal ideation. The patient does not report any auditory or visual hallucinations. The patient does not report any paranoid ideation. The patient does not report any symptoms of hypomania or marylou. No change to management at this time. Continue current medication regimen. Continue to monitor. Assessment & Plan (04/06/2019 3:43 PM CDT): Chronic, stable. Depressive symptoms are well controlled [...] at interval per scheduled appointment. Of psychosis. Subchondral insufficiency fracture of condyle of left femur 04/04/2019 Closed fracture of left tibial plateau 9 Primary osteoarthritis of left knee 03/17/2019 Complex tear of medial menis cus of left knee as current injury 03/17/2019 It band syndrome, right 02/27/2019 Hamstring tendinitis of right thigh 02/27/2019 Status post right knee replacement 09/20/2018 Osteoarthritis of right knee 09/01/2018 Body mass index (BMI) 40.0-44.9, adult 8 Morbid (severe) obesity due to excess calories 0 07/27/2018 CHF (congestive heart failure) Overview (11/23/2021): Grade 1 diastolic dysfunction and left ventricular ejection fraction 52% per 2D echo on 05/07/2021 Social History Tobacco Use Types Packs/Day Years Used Date Smoking Tobacco: Former Cigarettes Q uit: 11/2015 Passive Smoke Exposure: Never Smokeless Tobacco: Never Tobacco Cessation:Counseling Given: Not Answered Alcohol Use Standard Drinks/Week Comments Yes 0 (1 standard drink = 0.6 oz pur e alcohol) very rare, 2x/year AUDIT-C Answer Date Recorded Q1: How often do you have a drink containing alcohol? Never 09/14/2024 Q2: How many drinks containi ng alcohol do you have on a typical day when you are drinking? Patient does not drink Q3: How often do you have si x or more drinks on one occasion? Never 09/14/2024 PHQ-2 Answer Date Recorded PHQ-2 Score 0 01/14/2019 Personal Safety Answer Date Recorded Have you ever been in or are you currently in a harmful physical or emotional relationship or is someone making you feel afraid or unsafe? Denies 10/02/2024 Comments No Sex and Gender Information Value Date Recorded Sex Assigned at Not on file Legal Sex Female 6:43 AM VEGETABLE FARM WORKER Gender Identity Not on file Sexual Orientation Not on file Occupation Industry Job Start Date Job End Date Disability Not on file Not on file Not on file Last Filed Vital Signs Vital Sign Reading Time Taken Comments Blood Pressure 95/65 10/02/2024 5:00 PM VEGETABLE FARM WORKER Pulse 87 10/02/2024 5:00 PM [employer]ABLE [employer] WORK[employer] Temperature 36.9 C (98.4 F) 10/02/2024 10:56 AM [employer]GETABLE [employer] WORK[employer] Respiratory Rate 18 10/02/2024 4:30 PM [employer]GETABLE [employer] WORKER Oxygen Saturation 94% 10/02/2024 5:00 PM [employer]ABLE [employer] WORKER Inhaled Oxygen Concentration - - Weight 118.4 kg (261 lb) 10/02/2024 10:56 AM VEGETABLE [employer] WORKER Height 167.6 cm (5' 6 ) 10/02/2024 10:56 AM [employer]GETABLE [employer] WORKER Body Mass Index 42.13 10/02/2024 10:56 AM VEGETABLE [employer]ARM WORKER Plan of Treatment Not on file Medical Devices Implanted Type Area Securities Settlement Processor Device Identifier Shelf Expiration Date Model / Serial / Lot System Accumix Bone Cement - [id number] Implanted:Qty: 1 on 05/05/2018 by Jensen Argueta MD at [facility] Right: Knee [employer] 01/12/2020 311.100 / / [employer] Implanted:Qty: 1 on 05/05/2018 by Jensen Argueta MD at [facility] Right: Knee [employer] 06/07/2020 402.203 (201.050) / [id number] / [id number] [employer] [id number] [place]os R+G Cement 40gm Bone - [id number] Implanted:Qty: 1 on 08/31/2018 by Jensen Argueta MD at [facility] Right: Knee [employer] 11/07/2021 [id number] / / [id number] [employer] [id number] Persona Cruciate Retaining Knee Right 8 Standard Component - [id number] Implanted:Qty: 1 on 08/31/2018 by Jensen Argueta MD at [facility] Right: Knee [employer] 08/07/2028 [id number] / / [id number] [employer] [id number] Persona Natural Tibia Stem Knee Right 5d F Baseplate Tibial - [id number] Implanted:Qty: 1 on 08/31/2018 by Jensen Argueta MD at [facility] Right: Knee [employer] 04/07/2028 [id number] / / [id number] [employer] [id number] Persona 14mm 30+ Mm Knee Tibia Taper Extension Stem - [id number] Implanted:Qty: 1 on 08/31/2018 by Jensen Argueta MD at [facility] Right: Knee [employer] 06/07/2028 [id number] / / [id number] [employer] [id number] 35mm Knee Component Patellar Vivacit-E All Poly Latex Free - [id number] Implanted:Qty: 1 on 08/31/2018 by Jensen Argueta MD at [facility] Right: Patella [employer] 02/05/2023 [id number] / / [id number] [employer] [id number] Persona 11mm Cruciate Retaining Knee Right 3-11 Ef Insert - [id number] Implanted:Qty: 1 on 08/31/2018 by Jensen Argueta MD at [facility] Right: Patella [employer] 03/07/2021 [id number] / / [id number] [employer] 402.202 Accuport Kit Bone Graft Sterile Disposable Latex Free - [id number] ([id number]) - [id number] Implanted:Qty: 1 on 04/13/2019 by Jensen Argueta MD at [facility] Left: Knee [employer] 10/07/2021 402.202 / 201.050 ([id number]) / [id number] System Accumix Bone Cement - [id number] Implanted:Qty: 1 on 04/13/2019 by Jensen Argueta MD at [facility] [employer] 09/08/2021 311.100 / / [id number] Procedures Procedure Name Priority Date/Time Associated Diagnosis Comments DIAGNOSTIC MAMMOGRAM BILATERAL W MARC Schedule Routine, Read Routine (OP Routine) 08/15/2024 9:16 AM CDT Mass of breast, unspecified laterality Encounter for screening mammogram for malignant neoplasm of breast Other specified disorders of breast from Last 3 Months or Most Recently Relevant to Health Maintenance Results * Diagnostic Mammogram Bilateral W Marc (08/15/2024 9:16 AM CDT) Anatomical Region Laterality Modality Breast Bilateral Mammography 08/15/2024 9:50 AM CDT Narrative 08/15/2024 9:56 AM CDT EXAM DESCRIPTION: US BREAST RIGHT LIMITED; DIAGNOSTIC MAMMOGRAM BILATERAL W MARC REASON FOR STUDY: 53-year-old female with palpable right breast lump along the inframammary fold. Left screening mammogram. COMPARISON: 06/25/2023, 01/06/2022, 09/05/2020 TECHNIQUE: CC and MLO views of the bilateral breasts an XCCL view of the right breast were obtained with digital technique using breast tomosynthesis with C view. Limited ultrasound of the right breast was performed with grayscale and color Doppler. FINDINGS: DENSITY: The breasts are almost entirely fatty. MAMMOGRAM FINDINGS: A radiopaque BB marker has been placed on the lower outer right breast, denoting the palpable area of concern. No definite finding is seen underlying the BB marker. No suspicious masses, suspicious microcalcifications, or other suspicious findings are identified in either breast. There is no new suspicious finding in either breast on mammogram. ULTRASOUND FINDINGS: Targeted ultrasound of the right breast palpable area of concern at 7 o'clock (along the inframammary fold) demonstrates a 6 x 3 x 7 mm oval circumscribed hypoechoic mass located just deep to the skin surface with parallel orientation, slight posterior acoustic enhancement, and no evidence of internal blood flow on color Doppler. A small tract is seen extending from this mass to the skin surface, in keeping with a benign epidermal inclusion cyst. Appearance of this mass is largely similar to that seen on prior outside ultrasound from 09/05/2020, at which time a similar mass measuring 5 x 3 x 4 mm was noted at the 6 o'clock position, 10 cm from the nipple. IMPRESSION: 1. Benign 7 mm skin based mass (likely epidermal inclusion cyst) is noted at the right breast palpable area of concern (7 o'clock, along the intramammary fold). Clinical follow-up is recommended. Any further evaluation should be based on clinical grounds. 2. No evidence of malignancy in either breast on mammogram. Monthly breast self physical examination and screening mammogram in 1 year are recommended. I discussed these findings and recommendations with the patient at the time of the examination. BIRADS 2 - Benign findings. THIS IS AN ELECTRONICALLY VERIFIED FINAL REPORT 08/15/2024 9:56 AM - Electronically signed by Yaw Morales M.D. MD: Report ID: [id number] Reading Location: [facility] Linda Cm Jarocho DO IMG MAMMO PROCEDURES Final Result from Last 3 Months or Most Recently Relevant to Health Maintenance Insurance MEDICARE MEDICARE [facility] MEDICARE ADVANTAGE MEDICARE [id number] [address] [id number] Advance Directives For more information, please contact: [phone] * Full Code (Latest Code Status on File) Date Activated Date Inactivated Comments 09/14/2024 2:25 PM 09/14/2024 11:49 PM * Full Code Date Activated Date Inactivated Comments 11/23/2021 3:48 AM 11/24/2021 10:03 PM * Full Code Date Activated Date Inactivated Comments 08/31/2018 12:20 PM 09/02/2018 8:03 PM Care Teams Field Sales Trainer Relationship Specialty Start Date End Date Linda Avendaño DO PCP - General Internal Medicine 11/01/21 Rosmery Christiansen, PT Physical Therapist Physical Therapy 03/02/18 Jordyn Mathews, PT Physical Therapist Physical Therapy 04/05/18 Maria Teresa Benítez, PT Physical Therapist Physical Therapy 04/11/18
--- OUTSIDE RECORDS SUMMARY | 2025-03-15 15:47 | XMS_ITS | Clinical Summary ---
Author Organization [facility] Physician Office Building [address] [place] [id number] Care Team Providers Care Director Hospice Operations Name Role Phone Rosmery Christiansen PT Unavailable Unavail able Jordyn Mathews PT Unavailable U Maria Teresa Lopez PT Unavailable Unavailable Linda Avendaño DO Primary Care Provider [phone] Allergies Active Allergy Reactions Criticality Noted Date [...] 09/22/2021 Assessment & Plan (09/22/2021 1:48 PM GEM STONE CUTTER): Continued cessation highly advised. No use in [...] ago Assessment & Plan (11/15/2020 7:14 PM GEM STONE CUTTER): Referred for substance use treatment. Vitamin D [...] covered or she must have to buy [id number]. I did suggest to her that she take vitamin D and gave her instructions on how to get [id number]. Recommended that she take 10,000 international units per day. Review measure this level again in 3 months. Advised her also to go out into the son and get sunlight. Assessment & Plan (12/26/2019 3:36 PM GEM STONE CUTTER): Lab work ordered. Not currently supplementing with vitamin-D Patellar tendinitis of right knee 07/04/2019 Chronic pain syndrome 07/04/2019 Primary insomnia 05/30/2019 Assessment & Plan (09/22/2021 1:49 PM GEM STONE CUTTER): ExerciseChronic condition, currently stable. Advised the patient [...] dose Assessment & Plan (11/15/2020 7:14 PM GEM STONE CUTTER): Chronic, persistent, complicated by substance use and [...] today. Assessment & Plan (12/26/2019 3:42 PM GEM STONE CUTTER): Chronic issue, persistent, only sleeping 4 to [...] interval. Assessment & Plan (11/18/2019 1:42 PM GEM STONE CUTTER): Chronic and persistent. Trazodone 100 mg at [...] (PTSD) Assessment & Plan (09/23/2021 1:23 PM GEM STONE CUTTER): Chronic, stable. No change to treatment at this point in time Assessment & Plan (07/31/2021 2:07 PM CDT): Continue with therapy. Assessment & Plan (12/26/2019 3:39 PM GEM STONE CUTTER): Chronic condition, currently not significant. Continue to monitor. Assessment & Plan (11/18/2019 1:42 PM GEM STONE CUTTER): Chronic, persistent, referred for therapy. Support provided. [...] 9 Assessment & Plan (09/22/2021 1:49 PM GEM STONE CUTTER): Chronic, stable. Depressive symptoms are well controlled [...] persistent. Assessment & Plan (11/15/2020 7:14 PM GEM STONE CUTTER): Chronic, persistent, confounded by substance use. Denies [...] discussed. Assessment & Plan (12/26/2019 3:41 PM GEM STONE CUTTER): Chronic, stable. Depressive symptoms are well controlled on current medication regimen. Tolerating medications without any reported side effects. The patient denies active suicidal and homicidal ideation. The following changes were made at today's appointment: [place] discontinued. Trazodone increased for sleep difficulties. Reevaluate treatment/symptoms at interval per scheduled appointment. Assessment & Plan (11/18/2019 1:43 PM GEM STONE CUTTER): Chronic and persistent. The patient does not [...] fraction 52% per 2D echo on 05/07/2021 Surgical History Surgery Date Site/Laterality Comments CHOLECYSTECTOMY OOPHERECTOMY Right JOINT REPLACEMENT Right knee KNEE ARTHROSCOPY 04/13/2019 Left Left Arthroscopy Knee Partial Medial Menisectomy Internal Fixation Of Medial Femerol Condyle And Medial Tibial Plateau - Left GASTRIC BYPASS Medical History Medical History Date Comments Bipolar 1 disorder (HCC) PTSD (post-traumatic stress disorder) Obsessive compulsive disorder Anxiety Arthritis Obesity GERD (gastroesophageal reflux disease) Fibroid B12 deficiency Vitamin D deficiency Folate deficiency Pulmonary embolus (HCC) 2018 CHF (congestive heart failure) (HCC) Grade 1 diastolic dysfunction and left ventricular ejection fraction 52% per 2D echo on 05/07/2021 Type 2 diabetes mellitus (HCC) Family History * Patient is adopted Medical History Relation Name Comments Arthritis Mother COPD Mother No Known Problems Other Depression Sister 1 Depression Sister 2 Relation Name Status Comments Mother Other Sister 1 Sister 2 Social History Tobacco Use Types Packs/Day Years [...] on file Legal Sex Female 6:43 AM GEM STONE CUTTER Gender Identity Not on file Sexual Orientation Not on file Occupation Industry Job Start Date Job End Date Disability Not on file Not on file Not on file Obstetrics History Para Term AB IAB SAB Ectopic Multiple Livin g Live Births 0 0 0 0 0 0 0 0 0 0 0 Last Filed Vital Signs Vital Sign Reading Time Taken Comments Blood Pressure 95/65 10/02/2024 5:00 PM GEM STONE CUTTER Pulse 87 10/02/2024 5:00 PM GEM STONE CUTTER Temperature 36.9 C (98.4 F) 10/02/2024 10:56 AM GEM STONE CUTTER Respiratory Rate 18 10/02/2024 4:30 PM GEM STONE CUTTER Oxygen Saturation 94% 10/02/2024 5:00 PM GEM STONE CUTTER Inhaled Oxygen Concentration - - Weight 118.4 kg (261 lb) 10/02/2024 10:56 AM GEM STONE CUTTER Height 167.6 cm (5' 6 ) 10/02/2024 10:56 AM GEM STONE CUTTER Body Mass Index 42.13 10/02/2024 10:56 AM GEM STONE CUTTER Plan of Treatment Health Maintenance Due Date Last Done Comments Cervical Cancer Screening 1968 Colon Cancer Screening-Colonoscopy 1968 Depression Screening 1968 Hepatitis C Screening 1968 DTaP/Tdap/Td Vaccine (1 - Tdap) 1979 Hepatitis B Screening 1986 Regular Well Visit/Exam 18-64 1986 Zoster Vaccine (1 of 2) 2018 Covid-19 Vaccine ( season) 2024 08/27/2022, 03/11/2022, 03/11/2022, Additional history exists Breast Cancer Screening-Mammogram 08/15/2025 08/15/2024, 06/25/2023, 01/06/2022, Additional history exists Pneumococcal vaccine <65 Aged Out 08/18/2023 No longer eligible based on patient's age to complete this topic Influenza Vaccine Completed 08/28/2024, , 08/14/2020, Additional history exists Medical Devices Implanted Type Area Bed Bug Exterminator Device Identifier Shelf Expiration Date Model / Serial / Lot System Accumix Bone Cement - [id number] Implanted:Qty: 1 on 05/05/2018 by Jensen Argueta MD at [facility] Right: Knee [employer] 01/12/2020 311.100 / / [employer] Implanted:Qty: 1 on 05/05/2018 by Jensen Argueta MD at [facility] Right: Knee [employer] 06/07/2020 402.203 (201.050) / [id number] / [id number] [employer] [id number] Pal[place]os R+G Cement 40gm Bone - [id number] Implanted:Qty: 1 on 08/31/2018 by Jensen Argueta MD at [facility] Right: Knee [employer] 11/07/2021 [id number] / / [id number] [employer] [id number] Persona Cruciate Retaining Knee Right 8 Standard Component - [id number] Implanted:Qty: 1 on 08/31/2018 by Jensen Argueta MD at [facility] Right: Knee [employer] 08/07/2028 [id number] / / [id number] [employer] [id number] Persona Natural Tibia Stem Knee Right 5d F Baseplate Tibial - [id number] Implanted:Qty: 1 on 08/31/2018 by Jensen Argueta MD at [facility] Right: Knee [employer] 04/07/2028 [id number] / / [id number] [employer] [id number] Persona 14mm 30+ Mm Knee Tibia Taper Extension Stem - [id number] Implanted:Qty: 1 on 08/31/2018 by Jensen Argueta MD at [facility] Right: Knee [employer] 06/07/2028 [id number] / / [id number] [employer] [id number] 35mm Knee Component Patellar Vivacit-E All Poly Latex Free - [id number] Implanted:Qty: 1 on 08/31/2018 by Jensen Argueta MD at [facility] Right: Patella [employer] 02/05/2023 [id number] / / [id number] [employer] [id number] Persona 11mm Cruciate Retaining Knee Right 3-11 Ef Insert - [id number] Implanted:Qty: 1 on 08/31/2018 by Jensen Argueta MD at [facility] Right: Patella [employer] 03/07/2021 [id number] / / [id number] [employer] 402.202 Accuport Kit Bone Graft Sterile Disposable Latex Free - S201.050 ([id number]) - [id number] Implanted:Qty: 1 on 04/13/2019 by Jensen Argueta MD at [facility] Left: Knee [employer] 10/07/2021 402.202 / 201.050 ([id number]) / [id number] System Accumix Bone Cement - [id number] Implanted:Qty: 1 on 04/13/2019 by Jensen Argueta MD at [facility] [employer] 09/08/2021 311.100 / / [id number] Procedures Procedure Name Priority Date/Time Associated Diagnosis [...] AM - Electronically signed by Yaw Morales M.D., MD: Report ID: [id number] Reading Location: [facility] Linda Soila Jarocho DO IMG MAMMO PROCEDURES Final Result from Last 3 Months or Most Recently Relevant to Health Maintenance Insurance MEDICARE MEDICARE [facility] MEDICARE [facility] Address: [address] [address] [place] [address] MEDICARE Advance Directives For more information, please contact: [phone] * Full Code (Latest Code Status on File) Date Activated Date Inactivated Comments 09/14/2024 2:25 PM 09/14/2024 11:49 PM * Full Code Date Activated Date Inactivated Comments 11/23/2021 3:48 AM 11/24/2021 10:03 PM * Full Code Date Activated Date Inactivated Comments 08/31/2018 12:20 PM 09/02/2018 8:03 PM Care Teams Director Hospice Operations Relationship Specialty Start Date End Date Linda Avendaño DO PCP - General Internal Medicine 11/01/21 Rosmery Christiansen, PT Physical Therapist Physical Therapy 03/02/18 Jordyn Mathews, PT Physical Therapist Physical Therapy 04/05/18 Maria Teresa Benítez, PT Physical Therapist Physical Therapy 04/11/18
--- OUTSIDE RECORDS SUMMARY | 2025-03-15 15:47 | XMS_ITS | CONTINUITY OF CARE DOCUMENT ---
Author Name wilmer guillen Address Unknown Organization [facility] Address [address] [place] [address] Phone [phone] Care Team Providers Care Manager Information Name Role Phone Stef MEZA, Ximena Unavailable [phone] BLAS VENTURA MD Unavailable [phone] ROBERT PÉREZ MD Unavailable PROBLEMS Condition Status Date Provider Notes Shortness of breath active Ximena Finch MD Pulmonary embolism-right henry g, no evidence of DVT active Ximena Finch MD Bipolar disorder active Ximena Finch MD Obesity active Ximena Finch MD ARTHRITIS active Ximena Finch MD ENCOUNTERS Date Type Provider Location Encounter Diag nosis - In-person encounter Office Visit Ximena Finch MD [facility] Shortness of breathPulmonary embolism-right lung, no evidence of DVTBipolar disorderObesityARTHRITIS VITAL SIGNS Date Observation Value Provider Body Mass Index (Ratio) 40.09 kg/m2 Epi Finch MD blood pressure, resting No Brit nwe Block pulse rate 79 /min Leila Block blood pressure, diastolic 80 mm[Hg] Br ittany Block blood pressure, systolic 104 mm[Hg] Lydia ttachante Block oxygen saturation, oximetry 98 % Leila Block respiratory rate E&M 16 /min Brittan y Block height E&M 67 [in_i] Leila Block weight E&M 256 [lb_av] Leila Block ALLERGIES Allergy Name Onset Date Reaction Criticality Status TAMADOL High Criticality active COMPAZINE High Criticality active HISTORY OF MEDICATION USE Medication Status Instructions Dates Provider Indications Com ments OXYCODONE-ACETA MINOPHEN 7.5-325 MG ORAL TABLET active TAKE 1 TO 2 TABS BY MOUTH EVERY 6 HOURS NEEDED FOR PAIN 4 Leila Block #60, 15 days supply, Prescribed by DARSHAN MOORE, Filled 05/01/2019 CLONAZEPAM 2 MG ORAL TABLET active TAKE 1 TAB BY MOUTH TWICE DAILY NEEDED FOR ANXIETY 3 Leila Block #60, 30 days supply, Prescribed by ROBERT PÉREZ, Filled 05/12/2019 LITHIUM CARBONATE 300 MG ORAL CAPSULE active TAKE 2 CAPSULES BY MOUTH TWICE A DAY 4 Leila Block #120, 30 days supply, Prescribed by YIN HUBER, Filled 05/13/2019 LAMOTRIGINE 200 MG ORAL TABLET active TAKE 1.5 TABLET(S) EVERY DAY BY ORAL ROUTE. 3 Leila Block #45, 30 days supply, Prescribed by YIN HUBER, Filled 05/13/2019 XARELTO 20 MG ORAL TABLET active TAKE 1 TABLET BY MOUTH DAILY WITH DINNER FOR 30 DAYS 0 Leila Block #30, 30 days supply, Prescribed by ANSHUL PEREZ, Filled 05/25/2019 TEMAZEPAM 15 MG ORAL CAPSULE active TAKE 1 CAPSULE (15 MG TOTAL) BY MOUTH NIGHTLY NEEDED FOR SLEEP 8 Leila Block #30, 30 days supply, Prescribed by BLAS VENTURA, Filled 05/25/2019 LATUDA 120 MG ORAL TABLET active TAKE 1 TABLET BY MOUTH EVERY DAY 3 Leila Block #30, 30 days supply, Prescribed by YIN HUBER, Filled 05/25/2019 SOCIAL HISTORY Date Observation Value Provider social history reviewed E&M reviewed - no changes required Ximena Finch MD social history E&M S moking History: P rohith is a former smoker. Ximena Finch MD alcohol use no Leila Bradshaw smoking, year quit 2016 Leila Block cigarette use yes Leila Block smoking status Former smoker Leila Wilson ck FAMILY HISTORY Family Member Condition Father Family History Unkno wn Mother Family History Unkno wn INSURANCE PROVIDERS Payer name Policy type / [place]age type [place] [id number] ADVANCE DIRECTIVES Name Date DISCUSSED - NO DECISION MADE TREATMENT PLAN Date Name Performer Cardiology Ximena Finch MD Cardiology Ximena Finch MD Cardiology Ximena Finch MD Cardiology Ximena Finch MD Cardiology Ximena Finch MD Date Name Complete Echo HISTORY OF PROCEDURES Procedure Date Procedure Name Provider Procedure Notes S tatus EKG Ximena Finch MD completed
--- OUTSIDE RECORDS SUMMARY | 2025-03-15 15:47 | XMS_ITS | Clinical Summary ---
Author Organization [facility] Address [address] [place] [address] Care Team Providers Care Occupational Therapy Assist Name Role Phone Jarocho, Linda Concha ERICKSON Primary Care Provider [phone] Allergies Active Allergy Reactions Criticality Noted Date Comments Prochlorperazine Seizure 05/18/2023 Tramadol Other (see comment) 05/18/2023 Altered mental status Medications clonazePAM (KLONOPIN) 2 MG tablet Take 1 tablet (2 mg total) by mouth 2 (two) times a day. Active Doxepin HCl 150 MG Cap Take 1 capsule by mouth nightly at bedtime. at bedtime. Active empagliflozin (JARDIANCE) 10 MG tablet Take 1 tablet (10 mg total) by mouth daily. Active metoprolol succinate ER (TOPROL-XL) 50 MG 24 hr tablet Take 2 tablets (100 mg total) by mouth daily. Active potassium chloride CR (KLOR-CON M) 10 MEQ tablet Take 1 tablet (10 mEq total) by mouth daily. Active rosuvastatin (CRESTOR) 5 MG tablet Take 1 tablet (5 mg total) by mouth nightly at bedtime. Active methocarbamol (ROBAXIN) 500 MG tablet Take 1 tablet (500 mg total) by mouth 2 (two) times daily. 09/22/20 23 Active progesterone (PROMETRIUM) 100 MG capsule Take 1 capsule (100 mg total) by mouth daily. Active HYDROcodone-acetam inophen (NORCO) 5-325 MG tabletIndications: Acute Pain < 7 Day Supply Take 1 tablet by mouth every 6 (six) hours as needed. Indications : Acute Pain < 7 Day Supply 20 tablet 04/24/20 24 Active acetaminophen (TYLENOL) 160 MG/5ML solution Take 1,000 mg by mouth. 08/22/20 24 Active gabapentin (NEURONTIN) 300 MG capsule Take 1 capsule (300 mg total) by mouth. 07/12/20 24 Active lamoTRIgine (LAMICTAL) 100 MG tablet Take 1 tablet (100 mg total) by mouth daily. Active miSOPROStol (CYTOTEC) 200 MCG tablet Take 1 tablet (200 mcg total) by mouth 2 (two) times daily. 02/09/20 Active ondansetron (ZOFRAN-ODT) 4 MG disintegrating tablet Take 1 tablet (4 mg total) by mouth every 6 (six) hours as needed. 08/22/20 24 Active oxyCODONE-acetamin ophen (PERCOCET) 5-325 MG tablet Take by mouth every 6 (six) hours. 03/21/20 24 Active sucralfate (CARAFATE) 1 GM/10ML suspension Take 10 mLs (1 g total) by mouth. 02/09/20 25 Active BELSOMRA 20 MG Tab TAKE 1 TABLET BY MOUTH AT BEDTIME for 30 days 05/29/20 24 Active aspirin EC (ECOTRIN) 81 MG tablet Take 1 tablet (81 mg total) by mouth daily. Discontinued B Complex-C Tab tablet Take 1 tablet by mouth daily. Discontinued buPROPion XL (WELLBUTRIN XL) 300 MG 24 hr tablet Take 1 tablet (300 mg total) by mouth daily. Discontinued furosemide (LASIX) 40 MG tablet Take 1 tablet (40 mg total) by mouth daily. Discontinued lurasidone (LATUDA) 60 MG tablet Take 2 tablets (120 mg total) by mouth daily with breakfast. Discontinued omeprazole (PRILOSEC) 40 MG capsule Take 1 capsule (40 mg total) by mouth daily. Discontinued Semaglutide (OZEMPIC, 1 MG/DOSE, SC) Inject into the skin once a week. Discontinued vitamin B-12 (CYANOCOBALAMIN) (CYANOCOBALAMIN) 1000 mcg tablet Take 1 tablet (1,000 mcg total) by mouth daily. 025 Discontinued zolpidem (AMBIEN) 10 MG tablet Take 1 tablet (10 mg total) by mouth nightly as needed for Sleep. 025 Discontinued TRULICITY 0.75 MG/0.5ML injection Inject into the skin once a week. 09/02/20 025 Discontinued potassium chloride CR (MICRO-K) 10 MEQ CR capsule 025 Discontinued baclofen (LIORESAL) 10 MG tablet TAKE 1 TABLET BY MOUTH 2 TIMES EVERY DAY FOR SPASM 01/31/20 025 Discontinued HYDROcodone-acetam inophen (NORCO) 5-325 MG tabletIndications: Acute Pain < 7 Day Supply Take 1 tablet by mouth every 6 (six) hours as needed. Indications : Acute Pain < 7 Day Supply 20 tablet 03/23/20 025 Discontinued Active Problems Problem Noted Date Diagnosed Date Lumbar spondylosis 12/24/2024 Lumbar radiculopathy 05/18/2023 Overview (05/18/2023): Added automatically from request for surgery [id number] Lumbar facet arthropathy 05/18/2023 Encounters Date Type Department Care Team Description 02/23/2025 Telephone [facility] [place] [address] [id number] Enedina Moyer RN Postprocedure Call 02/22/2025 1:40 PM CDT - 02/22/2025 2:00 PM CDT Surgery [facility] [place] [address] [id number] Carol Nichols MD BLOCK MEDIAL BRANCH LUMBAR-L4, 5, S1 02/22/2025 12:40 PM CDT - 02/22/2025 1:46 PM CDT Hospital Encounter [facility] [place] [address] [id number] Carol Nichols MD Discharge Disposition: Home or Self Care (Routine Discharge) 02/22/2025 Travel 01/23/2025 Telephone [facility] [place] [address] [id number] Judy Burrows, RN Follow Up Call 01/01/2025 Telephone [facility] [place] [address] [id number] Judy Burrows, RN Follow Up Call 12/25/2024 Telephone [facility] [place] [address] [id number] Yari Madrigal, LYNSEY Follow Up (/) 12/24/2024 Prep for Procedure [facility] [place] [address] [id number] Arturo Vizcaino, INSPECTOR FIREARMS 12/20/2024 Telephone [facility] [place] [address] [id number] Yari Madrigal, LYNSEY Follow Up (//) from Last 3 Months Family History * Patient is adopted Relation Status Comments Mother Alive Social History Tobacco Use Types Packs/Day Years Used Date Smoking Tobacco: Former Cigarettes 1 20 Smokeless Tobacco: Never Tobacco Cessation:Counseling Given: Not Answered Alcohol Use Standard Drinks/Week Comments Never 0 (1 standard drink = 0.6 oz pur e alcohol) Comments No Sex and Gender Information Value Date Recorded Sex Assigned at Female 02/22/2025 12:38 PM CDT Legal Sex Female 11:20 PM CDT Gender Identity Not on file Sexual Orientation Not on file Last Filed Vital Signs Vital Sign Reading Time Taken Comments Blood Pressure 108/76 02/22/2025 1:00 PM CDT Pulse 82 02/22/2025 1:25 PM CDT Temperature 36.4 C (97.5 F) 02/22/2025 1:00 PM CDT Respiratory Rate 18 02/22/2025 1:25 PM CDT Oxygen Saturation 97% 02/22/2025 1:25 PM CDT Inhaled Oxygen Concentration - - Weight 98.9 kg (218 lb) 02/22/2025 1:00 PM CDT Height 167.6 cm (5' 6 ) 02/22/2025 1:00 PM CDT Body Mass Index 35.19 02/22/2025 1:00 PM CDT Plan of Treatment Health Maintenance Due Date Last Done Comments Cervical Cancer Screening Pap Smear (Age 30 to 64) Every 3 Years 1968 Colorectal Cancer Screening Colonoscopy (10 Years) 1968 Annual Physical 1971 Hepatitis C 1986 DTaP, Tdap and Td Vaccines (1 - Tdap) 1987 Hepatitis B Vaccines (1 of 3 - 19+ 3-dose series) 1987 Cervical Cancer Screening Pap with HPV Testing (Age 30 to 64) Every 5 Years 1998 Cervical Cancer Screening with HPV 1998 Lung Cancer Screening 06/28/2020 06/28/2019 Zoster Vaccines (2 of 2) 04/21/2023 02/24/2023 Mammogram Screening 08/15/2026 08/15/2024, 06/25/2023, 01/06/2022, Additional history exists Pneumococcal Vaccine: 50+ Years Completed 08/18/2023 COVID-19 Vaccine Completed 11/09/2024, , 08/27/2022, Additional history exists Meningococcal B Vaccine Aged Out No l onger eligible based on patient's age to complete this topic Meningococcal Vaccine Aged Out No haseeb millie eligible based on patient's age to complete this topic RSV Immunizations Under 20 Months Aged Out No longer eligible based on patient's age to complete this topic Procedures Procedure Name Priority Date/Time Associated Diagnosis Comments INJ PARAVERTEBRAL FACET JOINT W IMAGE SINGL 02/22/2025 1:17 PM CDT Lumbar spondylosis POCT GLUCOSE - GROSSMAN DOCKED DEVICE Routine 02/22/2025 1:04 PM CDT XR PAIN [facility] C-ARM Today 02/22/2025 12:45 PM CDT from Last 3 Months Results * POCT glucose (02/22/2025 1:04 PM CDT) GLUCOSE POC 75 70 - 99 mg/dL 02/22/2025 1:14 PM CDT [facility] 02/22/2025 1:04 PM CDT us Carol Nichols MD POCT ORDERABLES - DEVICE Hazel l Result [facility] [address] [place] [address], [place] [phone] * XR PAIN CLINIC C-ARM (02/22/2025 12:45 PM CDT) Narrative Radiology, Technologist - 02/22/2025 12:45 PM CDT This report does not contain a radiologist's interpretation. Please review associated procedure and/or operative report. Carol Nichols MD GENERAL IMAGING Final Result from Last 3 Months Insurance MEDICARE [facility] Care Teams Occupational Therapy Assist Relationship Specialty Start Date End Date Linda Avendaño DO [facility] [place] [phone] PCP - General INTERNAL MEDICINE 05/18/23
--- OUTSIDE RECORDS SUMMARY | 2025-03-15 15:47 | XMS_ITS | Encounter Summary ---
Author Organization [facility] Address [address] [place] [address] Care Team Providers Care Youth Officer Name Role Phone Linda Avendaño Primary Care Provider [phone] Reason for Visit * Reason Comments Med Change Request Encounter Details Date Type Department Care Team (Late st Contact Info) Description 03/13/2025 Refill [facility] 2S SURG/BARIATRIC [address] [place] [address] Shelia Little, PASSENGER SERVICE SUPERVISOR-[facility] [address] [facility] [address] [place] [address] Med Change Request Social History Tobacco Use Types Packs/Day Years Used Date Smoking Tobacco: Former Cigarettes 2016 Smokeless Tobacco: Never Alcohol Use Standard Drinks/Week Comments No 0 [...] Never 02/08/2025 Overall Financial Resource Strain (CARDIA) Ziae r Date Recorded How hard is it for you to pa y for the very basics like food, housing, medical care, and heating? Somewhat hard 02/08/2025 PHQ-2 Answer Date Recorded PHQ2 TOTAL SCORE 2 07/20/2022 [facility] [place] [facility] - Occupational Stress [...] any time in the past 12 m [facility], were you homeless or living in a skilled nursing (including now)? 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 Answer Date of Assessment Author No 02/07/2025 1:07 PM Lakeisha Zhao RN * Is person blind or have serious difficulty seeing? Answer Date of Assessment Author No 02/07/2025 1:07 PM Lakeisha Zhao RN * Does person have serious difficulty walking/climbing stairs? Answer Date of Assessment Author No 02/07/2025 1:07 PM Lakeisha Zhao RN * Does person have difficulty dressing/bathing? Answer Date of Assessment Author No 02/07/2025 1:07 PM Lakeisha Zhao RN * Does person have difficulty doing errands alone? Answer Date of Assessment Author No 02/07/2025 1:07 PM CDT Lakeisha Bean RN documented as of this encounter Mental Status * Does person have difficulty concentrating/remembering/making decisions? Answer Entry Date Author No 02/07/2025 1:07 PM CDT Lakeisha Bean RN documented in this encounter Plan of Treatment Upcoming Encounters Date Type Department Care Team (Late st Contact Info) Description 08/21/2025 1:00 PM CDT Office Visit [facility] [id number] [facility] [address] [place] [address] Shelia Little, PASSENGER SERVICE SUPERVISOR-TRANSPORTATION SUPERINTENDENT [address] [facility] [address] [place] [address] documented as of this encounter Visit Diagnoses Not on filedocumented in this encounter Care Teams Youth Officer Relationship Specialty Start Date End Date Linda Avendaño DO [address] [place] [phone] PCP - General Internal Medicine 07/09/22 documented as of this encounter
== END 2025-03-15 15:45 | disposition home or self-care (01) ==
PROVIDERS: Visit Provider Orthopaedic Surgery
DX: M25.461 Effusion, right knee (principal)
CPT/HCPCS: 87070; 87075; 87205